=== PATIENT | female | born 1940 | race Caucasian/White ===

== ENCOUNTER 2019-11-22 14:23 | Inpatient (IN) | payer MEDICARE, OTHER, SELFPAY ==
[2019-11-22] VITALS (8 sets, daily range): BP systolic 108–191; BP diastolic 48–91; PULSE 71–95; RESP 11–20; TEMP 36–36.6; O2SAT 90–100; BMI 35.0
--- NOTE | ~2019-11-22 | XR_ITS ---
EXAMINATION: XR surgery orthopedic DATE: 11/24/2019 10:44 INDICATION: Left hip pinning TECHNIQUE: 3 fluoroscopic spot images of the left hip were obtained during procedure performed by Dr. Del Rio. Radiologist was not present for the imaging or procedure. The amount of fluoroscopy time us ed during this procedure was 1.4 minutes. COMPARISON: 11/22/2019 FINDINGS: Nursing Assistants Teacher image redemonstrates a nondisplaced subcapital fracture of the proximal left femur. Subsequent images demonstrate fixation across the fracture with 3 cannulated lag screws which remains in near-an atomic alignment no other fractures identified. Mild osteoarthritis at the left hip. IMPRESSION: 1. Near-anatomic alignment post lag screw fixation of a nondisplaced subcapital fracture of the proxi mal left femur. Reviewed, dictated and finalized at location A. IMPRESSION: 1. Near-anatomic alignment post lag screw fixation of a nondisplaced subcapital fracture of the proximal left femur.
--- NOTE | ~2019-11-22 | CT_ITS ---
EXAMINATION: CT brain wo con DATE: 11/22/2019 16:42 INDICATION: Fall. Struck left side of head. TECHNIQUE: Computed tomography (CT) of the head was performed without intravenous contrast. The mA wa s adjusted according to patient size. Iterative reconstruction technique was employed. Exam dose: 68 1.00 mGy-cm total exam DLP. COMPARISON: 12/04/2018 CT brain FINDINGS: Large chronic infarct is again noted in the right temporal, occipital and parietal areas. There is nonspecific diminished attenuation of the cerebral white matter, likely due to chronic small vessel ischemic changes. No intracranial mass lesion or hemorrhage, midline shift or mass effect. No subdural or epidural lawrence heron. No skull fracture or bone destruction. Included paranasal sinuses and mastoid air cells are normally developed and aerated. IMPRESSION: Chronic large right temporal, occipital and parietal infarct Reviewed, dictated and finalized at Location A. Reviewed, dictated and finalized at location B.
--- NOTE | ~2019-11-22 | XR_ITS ---
EXAMINATION: XR hip LT 2V w AP pelvis DATE: 11/22/2019 15:12 INDICATION: Left hip pain. Fall. TECHNIQUE: An anteroposterior view of the pelvis and 2 views of left hip were obtained. COMPARISON: Pelvis radiograph 02/27/2016 FINDINGS: There is levocurvature and severe spondylosis of lumbar spine. There is a subcapital fractu re of left femoral neck. The distal fracture fragment demonstrates impaction and 17 degrees valgus an gulation. There is mild osteoarthritis of the hips. IMPRESSION: 1. Subcapital fracture of left femoral neck. 2. Mild osteoarthritis of the hips. Reviewed, dictated and finalized at location A.
--- NOTE | ~2019-11-22 | XR_ITS ---
[[id number] ] INDICATION: Left rib pain after fall TECHNIQUE: Frontal projection of the upper left ribs, frontal projection of the lower left ribs, obli que projection of all the left ribs, frontal inspiratory chest x-ray for interpretation. FINDINGS: There are no displaced rib fractures identified. There are no soft tissue abnormality see n. There is pulmonary vascular indistinctness with peribronchial thickening. Portacatheter tip in the SVC. There is atherosclerosis of the aorta. IMPRESSION: 1:No displaced rib fractures. 2:Pulmonary vascular indistinctness with peribronchial thickening centrally which may represent an at ypical pneumonia or interstitial edema. Reviewed, dictated and finalized at location A. IMPRESSION: 1:No displaced rib fractures. 2:Pulmonary vascular indistinctness with peribronchial thickening centrally whi ch may represent an atypical pneumonia or interstitial edema.
--- NOTE | ~2019-11-22 | XR_ITS ---
EXAMINATION: XR chest 2V DATE: 11/24/2019 06:36 INDICATION: Assess fluid balance prior to the surgery TECHNIQUE: frontal and lateral views of the chest were obtained. COMPARISON: Chest radiograph dated 07/23/2018 FINDINGS: Right subclavian central venous port catheter with distal tip at the caudal superior vena cava. Small bilateral pleural effusions with blunting at the posterior sulci and costophrenic angles. Multiple s mall scattered calcified pulmonary nodules consistent with old granulomatous disease. No pulmonary ed mary or pneumothorax. The cardiomediastinal silhouette is normal limits for AP technique. Surgical cli ps at the left side of the neck. IMPRESSION: 1. Small bilateral pleural effusions. Reviewed, dictated and finalized at location A.
--- NOTE | 2019-11-22 14:50 | PC.NURSE ---
patient able to bear some weight on left leg when being moved into bed
--- NOTE | 2019-11-22 15:31 | ECG_ITS ---
Measurements Intervals [place] Rate: 72 P: 76 NC: 196 QRS: -26 QRSD: 166 T: 144 QT: 440 QTc: 483 Interpretive Statements SINUS RHYTHM LEFT BUNDLE BRANCH BLOCK ABNORMAL ECG Electronically Signed On 11-22-2019 17:10:39 CDT by Manuel Villa D.O.
[2019-11-22 15:48] LABS: Basophils Percent Auto 0.1 % (0.2-1.2); Eosinophils Absolute Auto 0.3 K/mm3 (0-0.3); Eosinophils Percent Auto 2.9 % (0-4.4); Hemoglobin 13.3 g/dL (12.0-15.0); Immature Granulocyte Absolute 0.04 K/mm3 (0.00-0.031); Immature Granulocyte Percent A 0.5 % (0-0.5); Lymphocytes Absolute Auto 0.98 K/mm3 (0.9-3.2); Lymphocytes Percent Auto 11.1 % (18.3-44.2); Mean Corpuscular HGB Conc 33.3 g/dl (32-36); Mean Corpuscular Hemoglobin 29.5 pg (26-34); Mean Corpuscular Volume 88.7 fl (80-100); Mean Platelet Volume 9.5 fl (7.4-10.4); Monocytes Absolute Auto 0.6 K/mm3 (0.1-0.6); Neutrophils Percent Auto 78.4 % (45.5-73.1); Platelet Count Result 240 k/mm3 (150-375); Red Blood Count 4.51 M/mm3 (4.2-5.4); Red Cell Distribution Width 12.7 % (11.5-14.5); White Blood Count 8.9 K/mm3 (4.5-10.0)
[2019-11-22] MEDS: MORPHINE SULFATE 2 MG/ML INJ IV PUSH ×2 (15:48→20:09)
[2019-11-22] MEDS: SODIUM CHLORIDE 0.9% IV 1,000 ML 999 ML IV CONT (15:48)
[2019-11-22] MEDS: ONDANSETRON INJ 4 MG/2 ML VIAL IV PUSH (15:48)
--- NOTE | 2019-11-22 15:55 | PC.NURSE ---
PT DROWSY AND SLEEPING POST MORPHINE ADMIN, 2L NC APPLIED AT THIS TIME PA CELY AWARE.
--- NOTE | 2019-11-22 15:55 | PC.NURSE ---
PT O2 SATURATION 98% AFTER O2 APPLIED.
[2019-11-22 15:58] LABS: INR 1.1; Prothrombin Time 13.4 Seconds (11.1-14.7)
[2019-11-22 16:02] LABS: Blood Urea Nitrogen 21 mg/dL (7-17); Carbon Dioxide 31 mmol/L (22-30); Chloride 100 mmol/L (98-107); Estimated CRCL calculation 38 ml/min; Estimated Glomerular Filt Rate 53; Glucose 81 mg/dL (65-105); Potassium 3.9 mmol/L (3.4-5.0); Sodium 138 mmol/L (137-145)
--- NOTE | 2019-11-22 16:03 | ED.FALL ---
HPI - Fall General Chief Complaint: Fall <SHRUTHI Means Last Filed: 11/22/19 17:55> Stated Complaint: fall, left hip pain <SHRUTHI Means Last Filed: 11/22/19 17:55> Time Seen by Provider: 11/22/19 15:08 <SHRUTHI Means Last Filed: 11/22/19 17:55> Source: patient and family <SHRUTHI Means Last Filed: 11/22/19 17:55> Mode of arrival: ambulatory <SHRUTHI Means Last Filed: 11/22/19 17:55> Limitations: no limitations <SHURTHI Means Last Filed: 11/22/19 17:55> History of Present Illness HPI Narrative: Patient is an 79-year-old female who presents to emergency department for evaluation of injuries related to a ground-level fall that occurred while trying to get into her wheelchair fell onto a flower bed injuring the right hip striking the left side of the head and injuring the left ribs. Patient has history of unstable gait was going to lunch with her family when she fell. Denies syncope or loss of consciousness. Patient notes moderate aching pain of the right hip. Patient presents with family per private vehicle in no acute distress and has not had anything for pain. Patient notes she is currently being treated for urinary tract infection <SHRUTHI Means Last Filed: 11/22/19 17:55> Related Data Home Medications: Home Medications Medication Instructions Recorded Confirmed amlodipine 5 mg PO DAILY 11/22/19 11/22/19 aspirin [Aspirin Low Dose] 81 mg PO DAILY 11/22/19 11/22/19 atorvastatin 40 mg PO HS 11/22/19 11/22/19 carvedilol 3.125 mg PO BID 11/22/19 11/22/19 clopidogrel 75 mg PO DAILY 11/22/19 11/22/19 dorzolamide 1 drp OPHTHALMIC (EYE) BID 11/22/19 11/22/19 duloxetine 60 mg PO DAILY 11/22/19 11/22/19 furosemide 40 mg PO DAILY 11/22/19 11/22/19 insulin glargine [Lantus U-100 20 unit SUBCUT QPM 11/22/19 11/22/19 Insulin] insulin lispro [Humalog U-100 1 sliding scale dose SUBCUT 11/22/19 11/22/19 Insulin] USEASDIRECTD levothyroxine 100 mcg PO DAILY 11/22/19 11/22/19 losartan 25 mg PO DAILY 11/22/19 11/22/19 nitrofurantoin monohyd/m-cryst 11/22/19 potassium chloride 10 meq PO DAILY 11/22/19 11/22/19 <Red Lackey PA-C - Last Filed: 11/22/19 17:55> Allergies/Adverse Reactions: Allergies Allergy/AdvReac Type Severity Reaction Status Date / Time prednisone AdvReac Mild Other Verified 11/22/19 14:32 simvastatin AdvReac Unknown Muscle Verified 11/22/19 14:32 Spasms <Red Lackey PA-C - Last Filed: 11/22/19 17:55> Review of Systems Review of Systems: All systems reviewed & are unremarkable except as noted in HPI and below <Red Lackey PA-C - Last Filed: 11/22/19 17:55> [facility] Past Medical History Medical History: Medical History (Updated 11/22/19 @ 17:55 by Red Lackey PA-C) CVA (cerebral vascular accident) Hypertension Myocardial infarction <Red Lackey PA-C - Last Filed: 11/22/19 17:55> Surgical History Surgical History: Surgical History (Updated 11/22/19 @ 16:04 by Red Lackey PA-C) H/O carotid endarterectomy <Red Lackey PA-C - Last Filed: 11/22/19 17:55> Family History Family History: Family History (Updated 11/22/19 @ 19:57 by Naa Badillo RN) Daughter Diabetes mellitus Son Diabetes mellitus <Red Lackey PA-C - Last Filed: 11/22/19 17:55> Social History Social History: Social History Smoking status: Never smoker Alcohol intake: never Substance use: never Substance use type: does not use Gender identity (if verbalized by the patient): Female Spiritual care concerns: No <Red Lackey PA-C - Last Filed: 11/22/19 17:55> Exam Narrative: Exam Narrative: GENERAL: Well-appearing, well-nourished, and in no acute distress. HEAD: Normocephalic, contusion abrasion to the left parietal scalp EYES: PERRLA and EOMI. ENT: Na
--- NOTE | 2019-11-22 16:49 | PC.NURSE ---
Pt in scanner at this time.
--- NOTE | 2019-11-22 17:55 | PC.NURSE ---
HEART HEALTHY DIET ORDERED AND CALLED INTO NUTRITION AT THIS TIME PER REQUEST OF PT AND OKAYED BY BERNADETTE TA WHO STATES PT SURGERY WILL NOT BE UNTIL TOMORROW, SHE NEEDS TO BE NPO AFTER MIDNIGHT.
--- NOTE | 2019-11-22 19:06 | ADMGEN ---
This patient, Daniella Dietrich, was admitted to Medical Room 243-. Patient/family oriented to hospital policies and general routines including ID bracelet, bed and alarms, visiting hours, pain management, procedures, bathroom and other care routines, personal items, smoking policy, room service/diet, and visiting hours. Valuables list has been completed. Information on how to activate the Rapid Response Team has been discussed. Patient/Family are encouraged to report perceived risks to care and to ask questions if they do not understand what they are told or what they should do.
[2019-11-22] MEDS: LACTATED RINGERS 1,000 ML 125 ML IV CONT (20:08)
[2019-11-22] MEDS: FAMOTIDINE 20 MG/2 ML VIAL IV PUSH (20:10)
[2019-11-22 20:50] LABS: Glucose Point of Care 194 (65-105)
[2019-11-22] MEDS: INSULIN GLARGINE (*BKC) 100 UNITS/ML 12 UNITS SUB-Q (21:23)
--- NOTE | 2019-11-22 23:05 | PM.IMHP ---
H&P: HPI History of Present Illness Chief complaint: Left hip fracture/head injury Narrative: Daniella Dietrich is a 79 year old female who has some gait instability. The patient was tried to get into her wheelchair today when she fell and hit the left side of her head and her left hip she fell into the floor bed injuring that left hip left side of her head and left ribs. She had no syncope or loss of consciousness. She had some aches to her hip. It was reported that the patient is being treated for urinary tract infection. She is diabetic. She has also had a stroke in the past. The patient got slightly hypoxic after she was given morphine in the emergency room and was placed on oxygen at 2 L per nasal cannula. X-ray of the hip and pelvis subcapital fracture of the left femoral neck. Mild osteoarthritis of the hips. The patient is eating well. Hip pelvis x-ray was read as subcapital fracture of the left femoral neck. Mild osteoarthritis of the hips. Hip pelvis x-ray subcapital fracture of the left femur. Head CT was read as chronic large right temporal occipital parietal infarction. Chest x-ray and ribs no displaced rib fractures. Pulmonary vascular indistinctness with peribronchial thickening centrally to which may represent a typical pneumonia or interstitial edema. On IV fluids, given Zofran and morphine in the emergency room. Date of service 11/22/2019 Review of Systems Review of Systems: All systems reviewed & are unremarkable except as noted in HPI and below Constitutional: Constitutional: Reports as per HPI and Reports no additional constitutional complaints Eyes: Eyes: Reports as per HPI and Reports no additional eye complaints ENT: Reports system reviewed and no additional complaints, except as documented and Reports Normal hearing present Cardiovascular: Cardiovascular: Reports no additional cardiovascular complaints Respiratory: Respiratory: Reports no additional respiratory complaints and Reports no additional respiratory complaints Gastrointestinal: Gastrointestinal: Reports as per HPI and Reports no additional gastrointestinal complaints Musculoskeletal: Musculoskeletal: Reports no additional musculoskeletal complaints Integumentary/Breasts: Skin/Breast: Reports system reviewed and no additional complaints, except as docu and Reports as per HPI Neurologic: Reports system reviewed and no additional complaints, except as documented, Reports as per HPI and Reports Normal hearing present Psychiatric: Psychiatric: Reports no additional psychiatric complaints and Reports as per HPI Endocrine: Endocrine: Reports no additional endocrine complaints Hematologic/Lymphatic: Hematologic/Lymphatic: Reports no additional hematologic/lymphatic complaints Allergic/Immunologic: Allergic/Immunologic: Reports no additional allergic/immunologic complaints [facility] Past Medical History Medical History (Updated 11/22/19 @ 23:27 by Anna Marie Workman NP) CAD (coronary artery disease) History non STEMI and stent placement 2004 Congestive heart failure Diastolic CVA (cerebral vascular accident) DM2 (diabetes mellitus, type 2) Insulin-dependent Glaucoma HTN (hypertension), malignant Hyperlipidemia Hypertension Hypothyroidism Kidney stone Myocardial infarction Peripheral artery disease Port-A-Cath in place Surgical History Surgical History (Updated 11/22/19 @ 23:20 by Anna Marie Workman NP) Cataract extraction status Bilateral H/O carotid endarterectomy H/O heart artery stent 2004 History of appendectomy S/P ERCP To remove gallbladder stones Family History Family History Daughter Diabetes mellitus Son Diabetes mellitus Mother Cerebrovascular accident Heart disease Kidney disease Sibling Heart disease Sibling Carcinoma of colon Social History Social History (Updated 11/22/19 @ 23:22 by Anna Marie Workman NP) Social History: The patient lives at
[2019-11-23] VITALS (11 sets, daily range): BP systolic 117–180; BP diastolic 46–59; PULSE 79–987; RESP 12–20; TEMP 36.1–36.8; O2SAT 88–98
--- NOTE | 2019-11-23 | ECHO_ITS ---
Patient Info Name: Daniella Dietrich Age: 79 years : 1940 Gender: Female Ht: 62 in Wt: 191 lbs BSA: 1.99 m2 HR: 83 bpm BP: 180 / 53 mmHg Heart Rhythm: Sinus Rhythm Technical Quality: Good Exam Date: 11/23/2019 2:08 PM Exam Location: [facility] Pulmonary Exam Room: 243 Patient Status: Inpatient Admit Date: 11/22/2019 Staff Ordering Physician: Bel Carrillo PA-C Blood Bank Laboratory Technician: Karlie Mcintosh RDCS Attending Provider: Bilyl Arboleda MD Referring Physician: Gerardo LINDO; Exam Type: CA echo doppler color flow Study Info Indications - cad edema murmur Complete two-dimensional, color flow and Doppler transthoracic echocardiogram is performed. Summary 1. There is moderate to severely increased left ventricular wall thickness. 2. Left ventricular chamber dimension is normal. 3. Left ventricular systolic function is normal, estimated at 50-55%. 4. Left ventricular septal wall motion is abnormal with septal motion related to bundle branch block. 5. The left ventricular diastolic function is grade I diastolic dysfunction. 6. There is no aortic valve stenosis. 7. Severe pulmonary hypertension, estimated pulmonary arterial systolic pressure is 66 mmHg. 8. There is mild tricuspid valve regurgitation. Left Ventricle There is moderate to severely increased left ventricular wall thickness. Left ventricular chamber dimension is normal. Left ventricular systolic function is normal, estimated at 50-55%. Left ventricular septal wall motion is abnormal with septal motion related to bundle branch block. The left ventricular diastolic function is grade I diastolic dysfunction. Right Ventricle Right ventricular chamber dimension is normal. Right ventricular systolic function is normal. Left Atria Left atrial chamber dimension is mildly enlarged. Right Atria Right atrial chamber dimension is mildly enlarged. Aortic Valve The aortic valve is trileaflet. There is mild aortic valve sclerosis. There is no aortic valve stenosis. There is no aortic valve regurgitation. Pulmonic Valve The pulmonic valve is not well visualized. There is trace pulmonic regurgitation. Mitral Valve The mitral valve has thickened leaflets. There is trace mitral valve regurgitation. The mitral valve annulus is severely calcified. Tricuspid Valve The tricuspid valve leaflets are normal. There is mild tricuspid valve regurgitation. Severe pulmonary hypertension, estimated pulmonary arterial systolic pressure is 66 mmHg. Pericardium/Pleural The pericardium appears normal. There is no pericardial effusion. Inferior Vena Cava Normal inferior vena cava with >50% collapse upon inspiration consistent with normal right atrial pressure, 5 mmHg. Aorta The aortic root size at the sinus of Valsalva is normal. Left Ventricular Outflow Tract Name Value Normal LVOT 2D LVOT Diameter 2.0 cm LVOT Doppler LVOT Peak Gradient 4 mmHg LVOT Mean Gradient 2 mmHg LVOT VTI 20 cm LVOT VTI/AV VTI Ratio 1.0
[2019-11-23 04:11] LABS: Basophils Absolute Auto 0.1 K/mm3 (0.0-0.1); Basophils Percent Auto 0.3 % (0.2-1.2); Eosinophils Absolute Auto 0.5 K/mm3 (0-0.3); Eosinophils Percent Auto 2.8 % (0-4.4); Immature Granulocyte Percent A 0.6 % (0-0.5); Lymphocytes Percent Auto 3.1 % (18.3-44.2); Mean Corpuscular HGB Conc 33.3 g/dl (32-36); Mean Corpuscular Hemoglobin 29.7 pg (26-34); Mean Corpuscular Volume 89.2 fl (80-100); Mean Platelet Volume 10.1 fl (7.4-10.4); Monocytes Absolute Auto 0.8 K/mm3 (0.1-0.6); Neutrophils Absolute Auto 14.4 K/mm3 (1.3-6.7); Neutrophils Percent Auto 88.2 % (45.5-73.1); Platelet Count Result 191 k/mm3 (150-375); Red Blood Count 4.37 M/mm3 (4.2-5.4); Red Cell Distribution Width 12.8 % (11.5-14.5); White Blood Count 16.3 K/mm3 (4.5-10.0)
[2019-11-23] MEDS: MORPHINE SULFATE 2 MG/ML INJ IV PUSH ×2 (04:18→22:45)
[2019-11-23] MEDS: LACTATED RINGERS 1,000 ML 125 ML IV CONT (04:18)
[2019-11-23 04:34] LABS: Blood Urea Nitrogen 21 mg/dL (7-17); CRP 3.3 mg/dL (<1.0); Calcium 8.3 mg/dL (8.4-10.2); Carbon Dioxide 26 mmol/L (22-30); Chloride 101 mmol/L (98-107); Estimated CRCL calculation 44 ml/min; Estimated Glomerular Filt Rate 60; Glucose 271 mg/dL (65-105); Magnesium 1.9 mg/dL (1.6-2.3); Potassium 4.6 mmol/L (3.4-5.0); Sodium 133 mmol/L (137-145)
[2019-11-23 05:15] LABS: Thyroid Stimulating Hormone Reflex 0.712 uIU/mL (0.465-4.68)
[2019-11-23] MEDS: LOSARTAN POTASSIUM 25 MG TABLET PO (08:43)
[2019-11-23] MEDS: LEVOTHYROXINE SODIUM 100 MCG TABLET PO (08:43)
[2019-11-23] MEDS: AMLODIPINE BESYLATE 5 MG TABLET PO (08:43)
[2019-11-23] MEDS: FUROSEMIDE 40 MG TABLET PO (08:44)
[2019-11-23] MEDS: INSULIN ASPART (*BKC) 100 UNITS/ML SUB-Q ×3 (08:44→17:25)
[2019-11-23] MEDS: DULoxetine HCL 60 MG CAPSULE.DR PO (08:44)
[2019-11-23] MEDS: POTASSIUM CHLORIDE 10 MEQ TABLET.ER PO (08:44)
[2019-11-23] MEDS: carvediloL 3.125 MG TABLET PO ×2 (08:44→20:51)
[2019-11-23] MEDS: NITROFURANTOIN MONOHYD MACROCR 100 MG CAP PO (08:44)
[2019-11-23] MEDS: FAMOTIDINE 20 MG/2 ML VIAL IV PUSH ×2 (08:46→20:51)
[2019-11-23] MEDS: DORZOLAMIDE HCL 2% OPHTH DROPS 1 DROP EACH EYE ×2 (08:46→17:23)
--- NOTE | 2019-11-23 08:50 | PM.CNOR ---
Assessment and Plan Assessment and plan (1) Closed fracture of left hip: Qualifiers: Encounter type: initial encounter Qualified Code(s): S72.002A - Fracture of unspecified part of neck of left femur, initial encounter for closed fracture Code(s): S72.002A - Fracture of unspecified part of neck of left femur, initial encounter for closed fracture Status: Acute Assessment and Plan: pleasant 79-year-old female witnessed fall upon transfer yesterday. Left hip femoral neck fracture with valgus impaction. Patient is a poor candidate for hip replacement given her medical comorbidities, chronic urinary tract infections and previous stroke. She is at minimum a household ambulator and does some ambulation outside the house. History, physical exam and radiographs reviewed with the patient. Discussed the condition, nature, etiology and course of natural history with the patient. Treatment options including surgical and nonoperative treatment were reviewed. Risks and benefits of each as well as alternatives reviewed. The patient's questions were answered. Conservative treatment ice, SCDs. Patient is going to discuss with family but would like to proceed with surgery. She would need treatment for her urinary tract infection. Her anticoagulant served being held. If she is medically stable we have planned surgery for tomorrow and discussed hip pinning. Discussed nonoperative and operative treatment options with the patient. Risks and benefits of each as well as alternatives were reviewed. All of the patient's questions were answered. The risks of surgery reviewed including but not limited to: Neurovascular damage, wound complication, infection, blood clot, pulmonary embolus, stroke, myocardial infarction, and anesthetic risks up to and including . Continued pain and possible dysfunction were explained. Specific risks of the procedure including later recurrence of deformity. No guarantees were offered. If hardware used, discussed risk of failure/ breakage and possible need for removal. If complications occur, the patient understands the need for further treatment, possible further surgery. Patient verbalizes understanding and wishes to proceed. PLAN: Left hip pinning (2) UTI (urinary tract infection): Qualifiers: Urinary tract infection type: urethritis Qualified Code(s): N34.2 - Other urethritis Code(s): N39.0 - Urinary tract infection, site not specified Status: Acute (3) DM2 (diabetes mellitus, type 2): Qualifiers: Diabetes mellitus meterman insulin use: with retirement use Diabetes mellitus complication status: with neurologic complications Diabetes mellitus complication detail: with other neurological complication Qualified Code(s): E11.49 - Type 2 diabetes mellitus with other diabetic neurological complication; Z79.4 - long term care phlebotomist (current) use of insulin Code(s): E11.9 - Type 2 diabetes mellitus without complications Status: Chronic History of Present Illness HPI Consult date: 11/23/19 Requesting physician: Amber Hall MD Consult reason: fracture Chief complaint: Left hip fracture/head injury Narrative: 79-year-old female fall from transfer to wheelchair yesterday while outside the home. Emergency room radiographs show left hip fracture. Patient admitted. No prior problems with hip. Patient is a household ambulator with use of a cane, wheelchair ambulator outside the house. Denies loss of consciousness. Complains of left hip pain with movement. Denies numbness or tingling. Patient with history of chronic urinary tract infection. States was recently being treated with oral antibiotics as of last week for positive urine culture. Review of Systems Constitutional: Constitutional: Denies fever(s) Eyes: Eyes: Denies blurry vision ENT: Reports Normal hearing present Cardiovascular: Cardiovascular: Denies chest pain and Denies dyspnea Respirato
[2019-11-23 09:09] LABS: Glucose Point of Care 251 (65-105)
[2019-11-23 12:36] LABS: Glucose Point of Care 260 (65-105)
--- NOTE | 2019-11-23 13:45 | PM.IMPN ---
Progress Note: A&P Assessment and Plan (1) Closed fracture of left hip: Qualifiers: Encounter type: initial encounter Qualified Code(s): S72.002A - Fracture of unspecified part of neck of left femur, initial encounter for closed fracture Code(s): S72.002A - Fracture of unspecified part of neck of left femur, initial encounter for closed fracture Status: Acute Assessment and Plan: ----left hip fracture with sensation and pulses intact. Plan to go to surgery tomorrow. Aspirin and Plavix have been held. She has have an extensive cardiac history with vascular disease. I have called her executive coach and they would not give me any information over the phone but is going to fax over her last office report along with the echo. Her chest x-ray looks like there may be some pulmonary be edema I will add a BNP and obtain another chest x-ray tomorrow. I have given her a small dose of Lasix. I have also added another echo. The last echo here was June 2017 which showed diastolic dysfunction. She has been having some hypoxia since being here and we are going to wean that down. This is likely due to pain medications in the ER. Although it is not documented, nursing staff states that she was down 84 earlier today. She has not had any CP or SOB over the last 3 months. Patient has a moderate risk of surgery but should tolerated just fine since she routinely sees her executive coach. Her last cardiology appointment was in June. (2) DM2 (diabetes mellitus, type 2): Qualifiers: Diabetes mellitus prison insulin use: with prison use Diabetes mellitus complication status: with neurologic complications Diabetes mellitus complication detail: with other neurological complication Qualified Code(s): E11.49 - Type 2 diabetes mellitus with other diabetic neurological complication; Z79.4 - terminal block assembler (current) use of insulin Code(s): E11.9 - Type 2 diabetes mellitus without complications Status: Chronic Assessment and Plan: -----patient will be NPO at midnight so I will decrease her Lantus to 12 units tonight. Continue sliding scale insulin. Plan to increase Lantus after surgery as long as she does well. (3) Hyperlipidemia: Code(s): E78.5 - Hyperlipidemia, unspecified Status: Chronic Assessment and Plan: -----Continue with atorvastatin (4) UTI (urinary tract infection): Qualifiers: Urinary tract infection type: urethritis Qualified Code(s): N34.2 - Other urethritis Code(s): N39.0 - Urinary tract infection, site not specified Status: Acute Assessment and Plan: -----Macrobid has been discontinued and ceftriaxone started by Dr. Del Rio. Will continue with that. No pneumonia suspected clinically at this time but will monitor. Since she has been having night sweats and she has a significant leukocytosis this morning, I will draw all blood cultures. I do not suspect bacteremia and the likelihood is low. I think her leukocytosis is likely from inflammatory response since it was normal yesterday. Culture pending (5) Glaucoma: Code(s): H40.9 - Unspecified glaucoma Status: Chronic Assessment and Plan: ----Continue with patient's eye drops . (6) Hypothyroidism: Code(s): E03.9 - Hypothyroidism, unspecified Status: Chronic Assessment and Plan: -----TSH normal. Continue levothyroxine. (7) HTN (hypertension), malignant: Code(s): I10 - Essential (primary) hypertension Status: Chronic Assessment and Plan: ------last blood pressure 180/53. Likely more elevated due to pain. Continue amlodipine, carvedilol, Lasix, and losartan. P.r.n. hydralazine has been added. I spoke with the nurse who is going to recheck it. (8) Congestive heart failure: Code(s): I50.9 - Heart failure, unspecified Status: Chronic Assessment and Plan: -----known d
[2019-11-23] MEDS: FUROSEMIDE INJ 40 MG/4 ML VIAL 20 MG IV PUSH (15:28)
[2019-11-23 15:58] LABS: NT Pro B Type Natriuretic Pept 14800 PG/ML (5-100)
[2019-11-23] MEDS: INSULIN GLARGINE (*BKC) 100 UNITS/ML 12 UNITS SUB-Q (17:24)
[2019-11-23] MEDS: LATANOPROST 0.005% OP SOLN 2.5 ML BTL 1 DROP EACH EYE (17:24)
[2019-11-23 17:37] LABS: Glucose Point of Care 277 (65-105)
[2019-11-23] MEDS: ATORVASTATIN 40 MG TABLET PO (20:51)
[2019-11-23] MEDS: ONDANSETRON INJ 4 MG/2 ML VIAL IV PUSH (22:42)
[2019-11-24] VITALS (19 sets, daily range): BP systolic 91–192; BP diastolic 44–89; PULSE 62–92; RESP 12–25; TEMP 36–36.7; O2SAT 92–100
[2019-11-24] MEDS: hydrALAZINE HCL 20 MG/ML VIAL 10 MG IV PUSH (00:09)
[2019-11-24] MEDS: INSULIN ASPART (*BKC) 100 UNITS/ML SUB-Q ×4 (00:12→16:47)
[2019-11-24 04:09] LABS: Glucose Point of Care 375 (65-105)
[2019-11-24 04:12] LABS: Glucose Point of Care 385 (65-105)
[2019-11-24 06:06] LABS: Hemoglobin 11.4 g/dL (12.0-15.0); Mean Corpuscular HGB Conc 32.6 g/dl (32-36); Mean Corpuscular Hemoglobin 29.3 pg (26-34); Mean Platelet Volume 10.1 fl (7.4-10.4); Platelet Count Result 169 k/mm3 (150-375); Red Blood Count 3.89 M/mm3 (4.2-5.4); White Blood Count 11.1 K/mm3 (4.5-10.0)
[2019-11-24 06:21] LABS: Alanine Aminotransferase 12 U/L (4-35); Albumin Level 3.2 g/dL (3.5-5.1); Alkaline Phosphatase 116 U/L (38-126); Aspartate Amino Transferase 24 U/L (14-36); Bilirubin,Total 0.6 mg/dL (0.2-1.3); Blood Urea Nitrogen 23 mg/dL (7-17); Calcium 8.4 mg/dL (8.4-10.2); Carbon Dioxide 30 mmol/L (22-30); Chloride 97 mmol/L (98-107); Estimated CRCL calculation 44 ml/min; Estimated Glomerular Filt Rate 60; Glucose 332 mg/dL (65-105); Potassium 4.3 mmol/L (3.4-5.0); Sodium 131 mmol/L (137-145)
--- NOTE | 2019-11-24 07:10 | WPDHPUPDATE1 ---
History and Physical Update Update Date/Time: 11/24/19 07:10 History and Physical has been reviewed, including an updated exam of the patient. There are NO changes in the patient's condition. Risks, benefits, and alternatives have been discussed and questions answered. Patient agrees to proceed with procedure.
[2019-11-24 07:51] LABS: Hemoglobin A1C 9.6 % (<5.7)
[2019-11-24 07:57] LABS: Glucose Point of Care 316 (65-105)
[2019-11-24] MEDS: carvediloL 3.125 MG TABLET PO ×2 (08:19→20:23)
[2019-11-24] MEDS: FAMOTIDINE 20 MG/2 ML VIAL IV PUSH ×2 (08:19→20:25)
--- NOTE | 2019-11-24 08:20 | PC.NURSE ---
To OR per bed, IV saline locked. Report given to SAGRARIO Pena. Administered coreg per Becky. Blood sugar prior to surgery 316. Spoke with Becky and hospitalist BERNADETTE Staples who stated to administer the sliding scale Novolog of 4U.
[2019-11-24] MEDS: LACTATED RINGERS 1,000 ML 30 ML IV CONT (08:50)
[2019-11-24] MEDS: IBUPROFEN IV 800 MG/200 ML 800 MG/200 ML BAG 400 MG IVPB (09:30)
[2019-11-24 09:32] LABS: Glucose Point of Care 310 (65-105)
--- NOTE | 2019-11-24 09:33 | WPDANESEPPF ---
Anes - Initial Pre Proc Eval Procedure: Operation Date: 11/24/19 09:30 Proposed Procedures p LEFT HIP PINNING - Massimo Del Rio MD Date/Time: 11/24/19 09:33 Surgeon: Billy Arboleda MD Pre Op Diagnosis: Left hip fracture/head injury Patient Data Age: 79 Gender: F Height: 5 ft 2 in Weight: 86.9 kg Last Vital Signs Temp 36.7 C 11/24/19 08:18 Pulse 89 11/24/19 08:19 Resp 16 11/24/19 08:18 BP 138/52 L 11/24/19 08:18 Pulse Ox 94 11/24/19 08:18 Allergies Allergy/AdvReac Type Severity Reaction Status Date / Time prednisone AdvReac Mild Other Verified 11/22/19 14:32 simvastatin AdvReac Unknown Muscle Verified 11/22/19 14:32 Spasms Home Medications Medication Instructions Recorded Confirmed Type amlodipine 5 mg PO DAILY 11/22/19 11/22/19 History aspirin [Aspirin Low Dose] 81 mg PO DAILY 11/22/19 11/22/19 History atorvastatin 40 mg PO HS 11/22/19 11/22/19 History carvedilol 3.125 mg PO BID 11/22/19 11/22/19 History clopidogrel 75 mg PO DAILY 11/22/19 11/22/19 History dorzolamide 1 drp OPHTHALMIC (EYE) BID 11/22/19 11/22/19 History duloxetine 60 mg PO DAILY 11/22/19 11/22/19 History furosemide 40 mg PO DAILY 11/22/19 11/22/19 History insulin glargine [Lantus U-100 24 unit SUBCUT QPM 11/22/19 11/22/19 History Insulin] insulin lispro [Humalog U-100 1 sliding scale dose SUBCUT 11/22/19 11/22/19 History Insulin] USEASDIRECTD latanoprost 1 drp OPHTHALMIC (EYE) QPM 11/22/19 11/22/19 History levothyroxine 100 mcg PO DAILY 11/22/19 11/22/19 History losartan 25 mg PO DAILY 11/22/19 11/22/19 History nitrofurantoin monohyd/m-cryst 100 mg PO BID 11/22/19 11/22/19 History potassium chloride 10 meq PO DAILY 11/22/19 11/22/19 History Laboratory Tests 11/23/19 11/23/19 11/23/19 12:06 15:29 17:23 WBC RBC Hgb Hct MCV MCH MCHC RDW Plt Count MPV Sodium Potassium Chloride Carbon Dioxide BUN Creatinine Estim Creat Clear Calc Estimated GFR Glucose POC Capillary Glucose 260 mg/dl H mg/dl 277 mg/dl H mg/dl (65-105) (65-105) Hemoglobin A1c Calcium Total Bilirubin Direct Bilirubin AST ALT Alkaline Phosphatase NT-Pro-B Natriuret Pep 44914 PG/ML H PG/ML (5-100) Total Protein Albumin 11/23/19 11/23/19 11/24/19 20:58 23:00 05:34 WBC RBC Hgb Hct MCV MCH MCHC RDW Plt Count MPV Sodium Potassium Chloride Carbon Dioxide BUN Creatinine Estim Creat Clear Calc Estimated GFR Glucose POC Capillary Glucose 385 mg/dl H mg/dl 375 mg/dl H mg/dl (65-105) (65-105) Hemoglobin A1c 9.6 % H % (<5.7) Calcium Total Bilirubin Direct Bilirubin AST ALT Alkaline Phosphatase NT-Pro-B Natriuret Pep Total Protein Albumin 11/24/19 11/24/19 11/24/19 05:37 05:37 07:35 WBC 11.1 K/mm3 H K/mm3 (4.5-10.0) RBC 3.89 M/mm3 L M/mm3 (4.2-5.4) Hgb 11.4 g/dL L g/dL (12.0-15.0) Hct 35.0 % L % (37.0-47.0) MCV 90.0 fl fl (80-100) MCH 29.3 pg pg (26-34) MCHC 32.6 g/dl g/dl (32-36) RDW 13.0 % % (11.5-14.5) Plt Count 169 k/mm3 k/mm3 (150-375) MPV 10.1 fl fl (7.4-10.4) Sodium 131 mmol/L L mmol/L (137-145) Potassium 4.3 mmol/L mmol/L (3.4-5.0) Chloride 97 mmol/L L
[2019-11-24] MEDS: INSULIN HUMAN REGULAR (*BKC) 100 UNITS/ML 10 UNITS SUB-Q (09:35)
[2019-11-24] MEDS: ceFAZolin 2 GM/D5W 50 ML 2 GM/50 ML BAG IVPB (09:39)
[2019-11-24] MEDS: BUPIVACAINE/EPINEPHRINE 0.5% 10 ML VIAL INFILTRATE (10:23)
--- NOTE | 2019-11-24 10:49 | PM.PROC ---
Procedure Note - Detailed Date of procedure: 11/24/19 Pre-op diagnosis: Left hip fracture/head injury Post-op diagnosis: same Procedure performed: LT hip pinning Description of procedure: Indications: 79-year-old woman fall onto left hip. Left hip femoral neck fracture. Patient and family discussed treatment options with surgery and non operative treatment including risks and benefits. They desire operative treatment. Implants used: [employer] 6.5 millimeter cannulated screw x3 What was done: Informed consent signed. Extremity marked in preoperative holding area. Patient received intravenous antibiotics. Brought to operating room and underwent general anesthetic by the Anesthesia Team. Positioned supine on the fracture table. Left leg placed into longitudinal traction. Right leg extended out of field. Image intensification brought in and confirmed reduction of fracture. Left hip prepped and draped in usual sterile surgical fashion using ChloraPrep skin solution. Image intensification used to guide the starting position and a longitudinal incision made with 10 blade knife over the lateral proximal femur. Blunt dissection carried down to the lateral femur. Bleeding controlled with electrocautery. First guide pin placed in the inferior center position of the femoral neck and head. Confirmed with image intensification. Two subsequent pins placed superior and anterior and superior and posterior to the 1st pin to create an inverted triangle type pattern. Pins confirmed with image intensification. Length of screw measured, reaming performed. Appropriate size screw placed with good compression and fixation noted for all 3 pins. Guide pins removed. Final image intensification confirmed reduction of fracture and placement of hardware with threads past the fracture line and no protrusion of the hip joint. Wound thoroughly irrigated with antibiotic solution. Fascia repaired with 2 0 Vicryl interrupted sutures. Subcutaneous tissue repaired with 3 0 Monocryl interrupted suture. Skin approximated with 3 0 Monocryl running suture. Sterile dressing applied. Patient awoken from anesthesia, extubated and returned to recovery room in stable condition. All sponge needle and instrument counts correct at the end of the case. Implants: Biomet 6.5mm screws x 3 Anesthesia: GLMA Surgeon: Massimo Del Rio MD Machine Shop Instructor: 1st asst Estimated blood loss (mL): 30 Tourniquet time (min): 0 Drains: No Packing: No Pathology: none sent Complications: None Condition: stable Disposition: PACU
[2019-11-24 11:02] LABS: Glucose Point of Care 248 (65-105)
--- NOTE | 2019-11-24 11:10 | SUR.PHASEI ---
1110 dr sweet notiifed of [id number], no new orders
--- NOTE | 2019-11-24 12:04 | PC.NURSE ---
Patient return from OR per bed.
[2019-11-24] MEDS: DORZOLAMIDE HCL 2% OPHTH DROPS 1 DROP EACH EYE ×2 (12:14→16:49)
[2019-11-24 12:29] LABS: Glucose Point of Care 202 (65-105)
[2019-11-24] MEDS: KCL 20 MEQ/D5/0.45% SOD CHL 1,000 ML 80 ML IV CONT (12:46)
[2019-11-24] MEDS: LACTATED RINGERS 1,000 ML 80 ML IV CONT (12:55)
--- NOTE | 2019-11-24 13:13 | PM.IMPN ---
Progress Note: A&P Assessment and Plan (1) Closed fracture of left hip: Qualifiers: Encounter type: initial encounter Qualified Code(s): S72.002A - Fracture of unspecified part of neck of left femur, initial encounter for closed fracture Code(s): S72.002A - Fracture of unspecified part of neck of left femur, initial encounter for closed fracture Status: Acute Assessment and Plan: ----postop day 0 of left hip pinning Patient is doing well with pain control. Anticoagulation and PT OT per Ortho. (2) DM2 (diabetes mellitus, type 2): Qualifiers: Diabetes mellitus exterminator termite insulin use: with halfway use Diabetes mellitus complication status: with neurologic complications Diabetes mellitus complication detail: with other neurological complication Qualified Code(s): E11.49 - Type 2 diabetes mellitus with other diabetic neurological complication; Z79.4 - FPC (current) use of insulin Code(s): E11.9 - Type 2 diabetes mellitus without complications Status: Chronic Assessment and Plan: -----patient's A1c is 9 so her diabetes is uncontrolled at baseline. I had a long discussion with the patient and her family about the importance improving her blood glucose for healing. They said that she takes a sliding scale at home and averages anywhere between 8 and 12 units of insulin. That is likely why she is high here as we are under dosing her. I have added mealtime insulin of 4 units and increased her SSI to moderate. This should provide her close to her normal amount of insulin. Will adjust depending on her pattern. (3) Hyperlipidemia: Code(s): E78.5 - Hyperlipidemia, unspecified Status: Chronic Assessment and Plan: -----Continue with atorvastatin (4) UTI (urinary tract infection): Qualifiers: Urinary tract infection type: urethritis Qualified Code(s): N34.2 - Other urethritis Code(s): N39.0 - Urinary tract infection, site not specified Status: Acute Assessment and Plan: -----Urine culture negative and blood culture still pending. Will finish off course of macrobid. (5) Glaucoma: Code(s): H40.9 - Unspecified glaucoma Status: Chronic Assessment and Plan: ----Continue with patient's eye drops . (6) Hypothyroidism: Code(s): E03.9 - Hypothyroidism, unspecified Status: Chronic Assessment and Plan: -----TSH normal. Continue levothyroxine. (7) HTN (hypertension), malignant: Code(s): I10 - Essential (primary) hypertension Status: Chronic Assessment and Plan: ------last blood pressure 151/47. She had some hypotension with surgery. Will monitor and continue home medications. P.r.n. hydralazine as needed (8) Congestive heart failure: Code(s): I50.9 - Heart failure, unspecified Status: Chronic Assessment and Plan: -----known diastolic dysfunction and is compensated at this time. Continue with medications as stated above. (9) Acute respiratory failure with hypoxia: Code(s): J96.01 - Acute respiratory failure with hypoxia Status: Acute Assessment and Plan: -----patient became hypoxic after getting morphine in the ER. This is being weaned down but this morning she reportedly had some hypoxia although it is not documented. I looked at the chest x-ray and I am considering pulmonary edema as an etiology at this time. Will check a BNP and add a small dose of Lasix. She has not had any cough. No fevers. Pneumonia seems less likely. She is on ceftriaxone at this time as stated above (10) Hyponatremia: Code(s): E87.1 - Hypo-osmolality and hyponatremia Status: Acute Assessment and Plan: -----likely due to pain. 131 today. Monitor (11) Coronary artery disease: Code(s): I25.10 - Atherosclerotic heart disease of [place] coronary artery without angina pectoris
--- NOTE | 2019-11-24 14:16 | PCPTNOTE ---
Attempted to see pt for PT evaluation. Pt agreeable to therapy and evaluation initiated with daughter in room however once daughter left pt states she's not getting out of bed or working with therapy secondary to fatigue and to come back later. Will try again at a later time.
--- NOTE | 2019-11-24 14:57 | PCPTNOTE ---
Re-attempted to evaluate the patient for physical therapy as ordered and patient has refused again. Will attempt therapy eval again in the morning. Nursing and MD office notified. Risa Osman PT
[2019-11-24] MEDS: DOCUSATE SODIUM 100 MG CAPSULE PO (16:49)
--- NOTE | 2019-11-24 17:07 | PCRCNOTE ---
pt refused IS/did not want it in her room
[2019-11-24 17:08] LABS: Glucose Point of Care 178 (65-105)
[2019-11-24 17:11] LABS: Glucose Point of Care 170 (65-105)
--- NOTE | 2019-11-24 18:19 | PC.NURSE ---
Patient arguing with nursing staff in regards to care. She has refused therapy twice this afternoon. She is now adamant that she wants to walk around the room and go into the restroom. Discussed at length with patient's and patient in regards to benefits of therapy and risks of refusing. Patient's stating You can't keep her here just because shes refusing. What are even the benefits of it? She can walk, she did before surgery. Again, discussed in length and educated to the best of my ability.
[2019-11-24] MEDS: NITROFURANTOIN MONOHYD MACROCR 100 MG CAP PO (20:23)
[2019-11-24] MEDS: ATORVASTATIN 40 MG TABLET PO (20:23)
[2019-11-24] MEDS: LATANOPROST 0.005% OP SOLN 2.5 ML BTL 1 DROP EACH EYE (20:31)
[2019-11-24] MEDS: INSULIN GLARGINE (*BKC) 100 UNITS/ML 18 UNITS SUB-Q (20:38)
[2019-11-24 22:40] LABS: Glucose Point of Care 221 (65-105)
[2019-11-25] VITALS (11 sets, daily range): BP systolic 136–174; BP diastolic 50–68; PULSE 74–91; RESP 18–20; TEMP 36.2–36.7; O2SAT 88–99
[2019-11-25 05:26] LABS: Basophils Percent Auto 0.2 % (0.2-1.2); Eosinophils Percent Auto 11.1 % (0-4.4); Hematocrit 34.1 % (37.0-47.0); Immature Granulocyte Absolute 0.02 K/mm3 (0.00-0.031); Immature Granulocyte Percent A 0.2 % (0-0.5); Lymphocytes Absolute Auto 0.53 K/mm3 (0.9-3.2); Lymphocytes Percent Auto 5.7 % (18.3-44.2); Mean Corpuscular HGB Conc 32.3 g/dl (32-36); Mean Corpuscular Hemoglobin 28.9 pg (26-34); Mean Corpuscular Volume 89.5 fl (80-100); Monocytes Absolute Auto 1.1 K/mm3 (0.1-0.6); Monocytes Percent Auto 11.4 % (2.6-8.5); Neutrophils Absolute Auto 6.7 K/mm3 (1.3-6.7); Neutrophils Percent Auto 71.4 % (45.5-73.1); Platelet Count Result 158 k/mm3 (150-375); Red Blood Count 3.81 M/mm3 (4.2-5.4); Red Cell Distribution Width 12.8 % (11.5-14.5); White Blood Count 9.4 K/mm3 (4.5-10.0)
[2019-11-25 05:36] LABS: Blood Urea Nitrogen 19 mg/dL (7-17); Calcium 8.4 mg/dL (8.4-10.2); Carbon Dioxide 29 mmol/L (22-30); Chloride 99 mmol/L (98-107); Estimated CRCL calculation 40 ml/min; Estimated Glomerular Filt Rate 53; Glucose 285 mg/dL (65-105); Potassium 4.1 mmol/L (3.4-5.0); Sodium 134 mmol/L (137-145)
[2019-11-25] MEDS: ONDANSETRON INJ 4 MG/2 ML VIAL IV PUSH (06:07)
[2019-11-25 07:50] LABS: Glucose Point of Care 296 (65-105)
[2019-11-25] MEDS: LEVOTHYROXINE SODIUM 100 MCG TABLET PO (08:21)
--- NOTE | 2019-11-25 08:21 | WPDANESPN ---
Anes - Prog Note Post-Op Date/Time: 11/25/19 08:21 Cardiovascular status: normal Respiratory status: normal Airway patency: baseline Mental status: baseline Post-Op hydration status: normal Vital Signs: Last Vital Signs Temp 36.3 C L 11/25/19 06:00 Pulse 86 11/25/19 06:00 Resp 20 11/25/19 06:00 BP 168/61 H 11/25/19 06:00 Pulse Ox 99 11/25/19 06:00 I/O: Intake & Output 11/24/19 11/25/19 11/25/19 23:59 07:59 15:59 Intake Total 876 Output Total 150 Balance 726 Laboratory Tests 11/25/19 05:07 11/25/19 05:07 11/24/19 11/24/19 11/24/19 09:30 10:57 12:08 WBC RBC Hgb Hct MCV MCH MCHC RDW Plt Count MPV Immature Gran % (Auto) Neut % (Auto) Lymph % (Auto) [place] % (Auto) Eos % (Auto) Baso % (Auto) Lymph # (Auto) [place] # (Auto) Eos # (Auto) Baso # (Auto) Abs Immat Gran (auto) Absolute Neuts (auto) Absolute Nucleated RBC Nucleated RBC % Sodium Potassium Chloride Carbon Dioxide BUN Creatinine Estim Creat Clear Calc Estimated GFR Glucose POC Capillary Glucose 310 H 248 H 202 H Calcium 11/24/19 11/24/19 11/24/19 16:16 16:46 20:34 WBC RBC Hgb Hct MCV MCH MCHC RDW Plt Count MPV Immature Gran % (Auto) Neut % (Auto) Lymph % (Auto) [place] % (Auto) Eos % (Auto) Baso % (Auto) Lymph # (Auto) [place] # (Auto) Eos # (Auto) Baso # (Auto) Abs Immat Gran (auto) Absolute Neuts (auto) Absolute Nucleated RBC Nucleated RBC % Sodium Potassium Chloride Carbon Dioxide BUN Creatinine Estim Creat Clear Calc Estimated GFR Glucose POC Capillary Glucose 170 H 178 H 221 H Calcium 11/25/19 11/25/19 11/25/19 05:07 05:07 07:48 WBC 9.4 RBC 3.81 L Hgb 11.0 L Hct 34.1 L MCV 89.5 MCH 28.9 MCHC 32.3 RDW 12.8 Plt Count 158 MPV 10.0 Immature Gran % (Auto) 0.2 Neut % (Auto) 71.4 Lymph % (Auto) 5.7 L [place] % (Auto) 11.4 H Eos % (Auto) 11.1 H Baso % (Auto) 0.2 Lymph # (Auto) 0.53 L [place] # (Auto) 1.1 H Eos # (Auto) 1.0 H Baso # (Auto) 0.0 Abs Immat Gran (auto) 0.02 Absolute Neuts (auto) 6.7 Absolute Nucleated RBC 0.0 Nucleated RBC % 0.0 Sodium 134 L Potassium 4.1 Chloride 99 Carbon Dioxide 29 BUN 19 H Creatinine 1.00 Estim Creat Clear Calc 40 Estimated GFR 53 L Glucose 285 H POC Capillary Glucose 296 H Calcium 8.4 Microbiology 11/23/19 15:30 Blood Blood Culture - Preliminary 11/23/19 15:29 Blood Blood Culture - Preliminary Post-procedural complaints: none Patient Feedback: Patient satisfied with anesthetic care.
[2019-11-25] MEDS: INSULIN ASPART (*BKC) 100 UNITS/ML SUB-Q ×6 (08:22→18:10)
[2019-11-25] MEDS: FONDAPARINUX SODIUM 2.5 MG/0.5 ML SYRINGE SUB-Q (08:46)
--- NOTE | 2019-11-25 08:58 | PM.IMPN ---
Progress Note: A&P Assessment and Plan (1) Closed fracture of left hip: Qualifiers: Encounter type: initial encounter Qualified Code(s): S72.002A - Fracture of unspecified part of neck of left femur, initial encounter for closed fracture Code(s): S72.002A - Fracture of unspecified part of neck of left femur, initial encounter for closed fracture Status: Acute Assessment and Plan: ----postop day 1 of left hip pinning Patient is doing well with pain control. She is having a little confusion this morning and I will put in neurological checks. She has absolutely no neurological deficits him this is likely due to recent anesthesia. Glucose 296. Will monitor. Anticoagulation and PT OT per Ortho. (2) DM2 (diabetes mellitus, type 2): Qualifiers: Diabetes mellitus termite control representative insulin use: with termite control representative use Diabetes mellitus complication status: with neurologic complications Diabetes mellitus complication detail: with other neurological complication Qualified Code(s): E11.49 - Type 2 diabetes mellitus with other diabetic neurological complication; Z79.4 - terminal clerk (current) use of insulin Code(s): E11.9 - Type 2 diabetes mellitus without complications Status: Chronic Assessment and Plan: -----patient's A1c is 9 so her diabetes is uncontrolled at baseline. I had a long discussion with the patient and her family 11/23 about the importance improving her blood glucose for healing. They said that she takes a sliding scale at home and averages anywhere between 8 and 12 units of insulin. That is likely why she is high here as we are under dosing her. I have added mealtime insulin of 4 units and increased her SSI to moderate. This should provide her close to her normal amount of insulin. Lantus has been increased tonight to 22 units. Will adjust depending on her pattern. (3) Hyperlipidemia: Code(s): E78.5 - Hyperlipidemia, unspecified Status: Chronic Assessment and Plan: -----Continue with atorvastatin (4) UTI (urinary tract infection): Qualifiers: Urinary tract infection type: urethritis Qualified Code(s): N34.2 - Other urethritis Code(s): N39.0 - Urinary tract infection, site not specified Status: Acute Assessment and Plan: -----Urine culture negative and blood cultures are negative to date. Will finish off course of macrobid. (5) Glaucoma: Code(s): H40.9 - Unspecified glaucoma Status: Chronic Assessment and Plan: ----Continue with patient's eye drops . (6) Hypothyroidism: Code(s): E03.9 - Hypothyroidism, unspecified Status: Chronic Assessment and Plan: -----TSH normal. Continue levothyroxine. (7) HTN (hypertension), malignant: Code(s): I10 - Essential (primary) hypertension Status: Chronic Assessment and Plan: ------last blood pressure 168/61 before her morning meds. P.r.n. hydralazine as needed (8) Congestive heart failure: Code(s): I50.9 - Heart failure, unspecified Status: Chronic Assessment and Plan: -----known diastolic dysfunction and is compensated at this time. Continue with medications as stated above. (9) Acute respiratory failure with hypoxia: Code(s): J96.01 - Acute respiratory failure with hypoxia Status: Acute Assessment and Plan: -----patient is still on oxygen but it looks like her oxygen is 99%. Will wean oxygen. She was likely hypoxic due to pain medications. Shows small bilateral pleural effusions. Continue Lasix (10) Hyponatremia: Code(s): E87.1 - Hypo-osmolality and hyponatremia Status: Acute Assessment and Plan: -----improved to 134 today. Likely due to pain. Monitor (11) Coronary artery disease: Code(s): I25.10 - Atherosclerotic heart disease of [place] coronary artery without angina pectoris Status: Acute
[2019-11-25] MEDS: POTASSIUM CHLORIDE 10 MEQ TABLET.ER PO (09:17)
[2019-11-25] MEDS: DOCUSATE SODIUM 100 MG CAPSULE PO ×2 (09:17→18:06)
[2019-11-25] MEDS: LOSARTAN POTASSIUM 25 MG TABLET PO (09:17)
[2019-11-25] MEDS: CLOPIDOGREL BISULFATE 75 MG TABLET PO (09:17)
[2019-11-25] MEDS: NITROFURANTOIN MONOHYD MACROCR 100 MG CAP PO ×2 (09:17→21:30)
[2019-11-25] MEDS: DULoxetine HCL 60 MG CAPSULE.DR PO (09:18)
[2019-11-25] MEDS: FUROSEMIDE 40 MG TABLET PO (09:18)
[2019-11-25] MEDS: FAMOTIDINE 20 MG/2 ML VIAL IV PUSH ×2 (09:18→21:30)
[2019-11-25] MEDS: carvediloL 3.125 MG TABLET PO ×2 (09:18→21:30)
[2019-11-25] MEDS: AMLODIPINE BESYLATE 5 MG TABLET PO (09:18)
[2019-11-25] MEDS: DORZOLAMIDE HCL 2% OPHTH DROPS 1 DROP EACH EYE ×2 (09:18→18:06)
[2019-11-25] MEDS: ASPIRIN 81 MG ENTERIC TABLET PO (09:18)
[2019-11-25] MEDS: polyethylene glycoL 3350 17 GM POWD.PACK PO (09:23)
[2019-11-25] MEDS: IBUPROFEN IV 800 MG/200 ML 800 MG/200 ML BAG 400 MG IVPB (09:47)
--- NOTE | 2019-11-25 09:50 | PM.PNORT ---
Progress Note: A&P Assessment and Plan (1) Closed fracture of left hip: Qualifiers: Encounter type: initial encounter Qualified Code(s): S72.002A - Fracture of unspecified part of neck of left femur, initial encounter for closed fracture Code(s): S72.002A - Fracture of unspecified part of neck of left femur, initial encounter for closed fracture Status: Acute Assessment and Plan: POD #1: LEFT Hip Pinning PT/OT. WBAT. Walker. Fall Risk. Continue pain control. Ice lateral hip. DVT prophylaxis with Arixtra x28 days. SCDs. Incentive spirometry. TRC consult. Remove pop catheter after 1st session with PT. Will continue to follow. Dispo: TRC consult pending Follow up appointment scheduled for 5 weeks [address] op with Dr. Del Rio. Subjective Subjective Date/Time Seen: 11/25/19 0800 POD #1: Left Hip Pinning Patient alert this AM, up eating breakfast. Complaints of mild nausea. Answering questions appropriately but mild confusion to situation. Pain well controlled. No c/o SOB. Overall, feeling weak. Review of Systems Constitutional: Constitutional: Denies chills, Reports fatigue, Reports lethargy, Denies night sweats and Reports weakness Cardiovascular: Cardiovascular: Denies chest pain and Denies lightheadedness Respiratory: Respiratory: Denies cough and Denies dyspnea Comments: requiring NC 02 Gastrointestinal: Gastrointestinal: Denies abdominal pain, Denies diarrhea, Reports nausea (mild this AM ) and Denies vomiting Genitourinary: Comments: Pop catheter Musculoskeletal: Musculoskeletal: Reports arthralgias (left hip/thigh ), Reports joint swelling (left hip ) and Denies numbness Exam Const: General: comfortable and no acute distress Other: Mildly decreased mentation, confusion to situation Resp: Effort & Inspection: normal respiratory effort Cardio: Rate: regular rate Rhythm: regular rhythm GI: Inspection: non-distended Urinary Catheter: Urinary Catheter: patent and draining and urine clear Neuro: Cognition (Neuro): normal cognition (confusion to situation ) Extrem: Left lower extremity: hip/thigh Details: tenderness Location: of the hip Location: laterally, swelling Location: of the hip (hip/thigh- mild. thigh soft/mildly tender ) and abnormal ROM (limited due to recent fracture/hip pinning ), knee Details: normal to inspection; no tenderness and no swelling, lower leg (negative Suzy's Sign ) Details: normal to inspection, ankle (+ankle dorsiflexion/plantarflexion ) Details: normal to inspection and no edema; no tenderness and no swelling and foot Details: normal capillary refill, normal to inspection, toes with normal ROM, vascular exam Details: dorsalis pedis pulse present and posterior tibial pulse present and motor-sensory exam two point discrimination normal and light-touch normal; no tenderness Objective Data Vital Signs Vital Signs: Vital Signs - 24 hr 11/24/19 09:57 11/24/19 10:50 11/24/19 11:05 Temperature 36.5 C 36.1 C L Pulse Rate 87 62 74 Respiratory Rate 18 12 20 Blood Pressure 179/62 H 91/54 L 133/44 L Pulse Oximetry 99 100 92 11/24/19 11:20 11/24/19 11:35 11/24/19 12:10 Temperature 36.1 C L Pulse Rate 73 76 74 Respiratory Rate 15 25 H 17 Blood Pressure 122/89 137/49 L 116/85 Pulse Oximetry 96 96 98 11/24/19 12:25 11/24/19 12:55 11/24/19 13:55 Temperature 36.1 C L 36.0 C L 36.0 C L Pulse Rate 86 81 83 Respiratory Rate 16 18 19 Blood Pressure 141/58 H 151/47 H 152/50 H Pulse Oximetry 100 99 97 11/24/19 18:00 11/24/19 20:23 11/24/19 20:47 Temperature 36.3 C L Pulse Rate 81 80 Respiratory Rate 16 Blood Pressure 151/62 H Pulse Oximetry 98 98 11/24/19 22:00 11/25/19 02:00 11/25/19 06:00 Temperature 36.1 C L 36.2 C L 36.3 C L Pulse Rate 85 91 86 Respiratory Rate 20 18 20 Blood Pressure 145/58 H 151/56 H 168/61 H Pulse Oximetry 99 96 99 11/25/19 09:18 Temperature Pulse Rate 86 Respiratory Rate Blood
[2019-11-25 11:49] LABS: Glucose Point of Care 299 (65-105)
[2019-11-25 16:58] LABS: Glucose Point of Care 250 (65-105)
[2019-11-25] MEDS: LATANOPROST 0.005% OP SOLN 2.5 ML BTL 1 DROP EACH EYE (21:30)
[2019-11-25] MEDS: ATORVASTATIN 40 MG TABLET PO (21:30)
[2019-11-25] MEDS: INSULIN GLARGINE (*BKC) 100 UNITS/ML 22 UNITS SUB-Q (21:41)
[2019-11-25 22:02] LABS: Glucose Point of Care 190 (65-105)
[2019-11-26] MEDS: IBUPROFEN IV 800 MG/200 ML 800 MG/200 ML BAG 400 MG IVPB (02:13)
[2019-11-26 05:00] VITALS: BP 166/58; PULSE 87; RESP 18; TEMP 36.3; O2SAT 100
[2019-11-26 05:27] LABS: Hematocrit 32.5 % (37.0-47.0); Hemoglobin 10.6 g/dL (12.0-15.0)
[2019-11-26 05:39] LABS: Blood Urea Nitrogen 20 mg/dL (7-17); Calcium 8.4 mg/dL (8.4-10.2); Carbon Dioxide 32 mmol/L (22-30); Chloride 100 mmol/L (98-107); Estimated CRCL calculation 44 ml/min; Estimated Glomerular Filt Rate 60; Glucose 158 mg/dL (65-105); Magnesium 2.1 mg/dL (1.6-2.3); Potassium 3.6 mmol/L (3.4-5.0); Sodium 136 mmol/L (137-145)
[2019-11-26] MEDS: LEVOTHYROXINE SODIUM 100 MCG TABLET PO (06:34)
[2019-11-26] MEDS: LOSARTAN POTASSIUM 50 MG TABLET PO (08:59)
[2019-11-26] MEDS: DULoxetine HCL 60 MG CAPSULE.DR PO (08:59)
[2019-11-26] MEDS: POTASSIUM CHLORIDE 10 MEQ TABLET.ER PO (08:59)
[2019-11-26] MEDS: AMLODIPINE BESYLATE 5 MG TABLET PO (09:00)
[2019-11-26] MEDS: FUROSEMIDE 40 MG TABLET PO (09:00)
[2019-11-26] MEDS: CLOPIDOGREL BISULFATE 75 MG TABLET PO (09:00)
[2019-11-26] MEDS: ASPIRIN 81 MG ENTERIC TABLET PO (09:00)
[2019-11-26] MEDS: DORZOLAMIDE HCL 2% OPHTH DROPS 1 DROP EACH EYE ×2 (09:00→16:23)
[2019-11-26] MEDS: FAMOTIDINE 20 MG/2 ML VIAL IV PUSH (09:00)
[2019-11-26] MEDS: NITROFURANTOIN MONOHYD MACROCR 100 MG CAP PO (09:00)
[2019-11-26] MEDS: DOCUSATE SODIUM 100 MG CAPSULE PO ×2 (09:00→16:23)
[2019-11-26] MEDS: polyethylene glycoL 3350 17 GM POWD.PACK PO (09:01)
[2019-11-26] MEDS: FONDAPARINUX SODIUM 2.5 MG/0.5 ML SYRINGE SUB-Q (09:01)
[2019-11-26 09:02] VITALS: PULSE 76
[2019-11-26] MEDS: carvediloL 3.125 MG TABLET PO (09:02)
[2019-11-26] MEDS: INSULIN ASPART (*BKC) 100 UNITS/ML SUB-Q ×3 (09:08→16:20)
[2019-11-26 09:10] LABS: Glucose Point of Care 138 (65-105)
[2019-11-26 10:00] VITALS: BP 144/52; PULSE 73; RESP 18; TEMP 36.3; O2SAT 99
[2019-11-26 10:27] VITALS: O2SAT 93
[2019-11-26 10:37] VITALS: PULSE 70; RESP 18; O2SAT 93
[2019-11-26 11:59] LABS: Glucose Point of Care 197 (65-105)
[2019-11-26 14:00] VITALS: BP 122/40; PULSE 74; RESP 20; TEMP 36.6; O2SAT 97
--- NOTE | 2019-11-26 15:17 | PM.DS ---
DS: Admitting Diagnosis Admitting Diagnosis Admitting Diagnosis: Fracture of unspecified part of neck of left femur, initial encounter for closed fracture DS: Discharge Diagnosis Discharge Diagnosis (1) Closed fracture of left hip: Qualifiers: Encounter type: initial encounter Qualified Code(s): S72.002A - Fracture of unspecified part of neck of left femur, initial encounter for closed fracture Code(s): S72.002A - Fracture of unspecified part of neck of left femur, initial encounter for closed fracture Status: Acute Assessment and Plan: ----S/P left hip pinning Patient is doing well with pain control. Patient's pain was well controlled, confusion had resolved, and patient did well with physical therapy. I spoke with KATHY Deluca who said that the was there for the therapy session and he spoke with the about the plan of care at home. does not want her to go to rehab center and plans to take care of her at home. They could not afford the Arixtra at discharge and I spoke with Dr. Del Rio who recommended aspirin 325 mg b.i.d.. (2) DM2 (diabetes mellitus, type 2): Qualifiers: Diabetes mellitus intermediate accountant insulin use: with snf use Diabetes mellitus complication status: with neurologic complications Diabetes mellitus complication detail: with other neurological complication Qualified Code(s): E11.49 - Type 2 diabetes mellitus with other diabetic neurological complication; Z79.4 - termite renewal inspector (current) use of insulin Code(s): E11.9 - Type 2 diabetes mellitus without complications Status: Chronic Assessment and Plan: -----patient's A1c is 9 so her diabetes is uncontrolled at baseline. I had a long discussion with the patient and her family 11/23 about the importance improving her blood glucose for healing. They said that she takes a sliding scale at home and averages anywhere between 8 and 12 units of insulin. She should continue with her home insulin routine and follow-up with her primary care physician. glucose at discharge 190. (3) Hyperlipidemia: Code(s): E78.5 - Hyperlipidemia, unspecified Status: Chronic Assessment and Plan: -----Continue with atorvastatin (4) UTI (urinary tract infection): Qualifiers: Urinary tract infection type: urethritis Qualified Code(s): N34.2 - Other urethritis Code(s): N39.0 - Urinary tract infection, site not specified Status: Acute Assessment and Plan: -----Urine culture negative and blood cultures are negative to date. Her antibiotic that was prescribed outpatient was finished during hospitalization. (5) Glaucoma: Code(s): H40.9 - Unspecified glaucoma Status: Chronic Assessment and Plan: ----Continue with patient's eye drops . (6) Hypothyroidism: Code(s): E03.9 - Hypothyroidism, unspecified Status: Chronic Assessment and Plan: -----TSH normal. Continue levothyroxine. (7) HTN (hypertension), malignant: Code(s): I10 - Essential (primary) hypertension Status: Chronic Assessment and Plan: ------last blood pressure 122/40. Continue with home meds (8) Congestive heart failure: Code(s): I50.9 - Heart failure, unspecified Status: Chronic Assessment and Plan: -----known diastolic dysfunction and is compensated at this time. Continue with medications as stated above. (9) Acute respiratory failure with hypoxia: Code(s): J96.01 - Acute respiratory failure with hypoxia Status: Acute Assessment and Plan: -----patient was able to be weaned off oxygen. (10) Hyponatremia: Code(s): E87.1 - Hypo-osmolality and hyponatremia Status: Acute Assessment and Plan: -----resolved (11) Coronary artery disease: Code(s): I25.10 - Atherosclerotic heart disease of [place] coronary artery without angina pectoris
[2019-11-26 18:15] LABS: Glucose Point of Care 190 (65-105)
--- NOTE | 2019-11-30 10:45 | PC.NURSE ---
Blood cx is negative.
== END 2019-11-26 18:25 | disposition home health service (06) | DRG 480 ==
LOC: ANHED 17:59 → ANH2MED 11-23 07:10
PROVIDERS: Emergency Medicine Emergency Medical Services; Nurse Practitioner; Orthopaedic Surgery; Physician Assistant; Admitting Provider Family Medicine; Emergency Provider Emergency Medicine; PCP Internal Medicine; Visit Provider Internal Medicine
PROC: 0QS734Z Reposition Left Upper Femur with Internal Fixation Device, Percutaneous Approach (ICD-10-PCS; principal; 2019-11-24 09:30)
DX: S72.012A Unspecified intracapsular fracture of left femur, initial encounter for closed fracture (principal); J96.01 Acute respiratory failure with hypoxia; N39.0 Urinary tract infection, site not specified; I50.32 Chronic diastolic (congestive) heart failure; E87.1 Hypo-osmolality and hyponatremia; W05.0XXA Fall from non-moving wheelchair, initial encounter; Y92.099 Unspecified place in other non-institutional residence as the place of occurrence of the external cause; Z79.4 Long term (current) use of insulin; Z79.01 Long term (current) use of anticoagulants; E11.49 Type 2 diabetes mellitus with other diabetic neurological complication; I25.10 Atherosclerotic heart disease of native coronary artery without angina pectoris; I11.0 Hypertensive heart disease with heart failure; E03.9 Hypothyroidism, unspecified; E78.5 Hyperlipidemia, unspecified; I25.2 Old myocardial infarction; Z95.5 Presence of coronary angioplasty implant and graft; H40.9 Unspecified glaucoma; T40.2X5A Adverse effect of other opioids, initial encounter; Y92.238 Other place in hospital as the place of occurrence of the external cause
CPT/HCPCS: 36415; 70450; 71046; 71101; 73502; 80048; 80076; 83036; 83735; 83880; 84443; 85014; 85018; 85025; 85027; 85610; 85730; 86140; 86850; 86900; 86901; 87040; 87086; 93005; 93306; 96361; 96365; 96375; 97110; 97116; 97161; 97166; 97530; 97535; 99285; A9270; C1713; J0131; J0360; J0690; J0696; J1652; J1741; J1815; J1940; J2060; J2250; J2270; J2405; J2704; J3010; J3480; J7030; J7120; Q9957

== ENCOUNTER 2020-01-19 10:54 | Outpatient (CLI) | payer MEDICARE, OTHER, SELFPAY ==
[2020-01-19 11:52] LABS: Hemoglobin 12.2 g/dL (12.0-15.0); Mean Corpuscular Hemoglobin 29.3 pg (26-34); Mean Corpuscular Volume 88.9 fl (80-100); Mean Platelet Volume 9.5 fl (7.4-10.4); Platelet Count Result 213 k/mm3 (150-375); Red Blood Count 4.16 M/mm3 (4.2-5.4); Red Cell Distribution Width 12.9 % (11.5-14.5); White Blood Count 6.2 K/mm3 (4.5-10.0)
[2020-01-19 12:04] LABS: Hemoglobin A1C 8.1 % (<5.7)
[2020-01-19 12:09] LABS: Alanine Aminotransferase 11 U/L (4-35); Albumin Level 3.4 g/dL (3.5-5.1); Alkaline Phosphatase 152 U/L (38-126); Anion Gap 3 mmol/L (8-16); Aspartate Amino Transferase 21 U/L (14-36); Bilirubin,Total 0.3 mg/dL (0.2-1.3); Blood Urea Nitrogen 15 mg/dL (7-17); Calcium 8.8 mg/dL (8.4-10.2); Carbon Dioxide 33 mmol/L (22-30); Chloride 102 mmol/L (98-107); Estimated Glomerular Filt Rate > 60; Glucose 208 mg/dL (65-105); Potassium 4.4 mmol/L (3.4-5.0); Sodium 138 mmol/L (137-145)
[2020-01-19 12:19] LABS: Erythrocyte Sedimentation Rate 23 mm/hr (0-20)
[2020-01-19 12:31] LABS: Iron 51 ug/dL (37-170)
[2020-01-19 12:41] LABS: Percent Iron Saturation 16 % (20-50)
[2020-01-19 13:30] LABS: Folic Acid > 20.0 ng/mL (2.76->20)
== END 2020-01-19 10:55 | disposition home or self-care (01) ==
PROVIDERS: PCP Internal Medicine; Visit Provider Physician Assistant Medical
DX: R53.83 Other fatigue (principal); E11.9 Type 2 diabetes mellitus without complications; N95.1 Menopausal and female climacteric states
CPT/HCPCS: 36415; 80053; 82607; 82728; 82746; 83036; 83540; 83550; 83735; 84443; 85027; 85652

== ENCOUNTER 2020-01-30 10:57 | Outpatient (CLI) | payer MEDICARE, OTHER, SELFPAY ==
--- NOTE | ~2020-01-30 | CT_ITS ---
EXAMINATION:CT chest wo con DATE: 01/30/2020 11:55 INDICATION: Abnormal chest radiographs. Thoracic aortic aneurysm. TECHNIQUE: Computed tomography (CT) of the chest was performed without intravenous contrast. Automate d exposure control and iterative reconstruction technique were employed. The dose-length product (DLP ) was 223.26 mGy-cm. COMPARISON: Chest 2 views 11/24/2019, CT abdomen and pelvis 01/13/2019 FINDINGS: Calcified pulmonary nodules and calcified hilar and mediastinal lymph nodes are consistent with old granulomatous disease. There is mild scarring at the lung apices. There is mosaic attenuatio n in the lungs, likely small airways disease. There are a few nodules in the lungs measuring up to 4 mm, likely benign. There is a small right pleural effusion. The heart size is normal. There are coron servando artery calcifications. No pericardial effusion. There is a right subclavian port with tip in supe rior vena cava. There are widespread arterial calcifications. There is mild atrophy of right kidney. Partially visualized are stones in the right kidney measuring up to 8 mm. Thoracic aorta is normal in caliber. Aortic atherosclerosis is noted. There are widespread arterial calcifications. There are mu ltiple healing/healed right rib fractures. There is severe thoracic and cervical spondylosis. IMPRESSION: 1. Aortic atherosclerosis. No aneurysm. 2. Chronic small right pleural effusion. 3. Right kidney stones. Reviewed, dictated and finalized at [facility].
== END 2020-01-30 10:58 | disposition home or self-care (01) ==
PROVIDERS: PCP Internal Medicine; Visit Provider Physician Assistant Medical
DX: R93.89 Abnormal findings on diagnostic imaging of other specified body structures (principal); I70.0 Atherosclerosis of aorta; J90 Pleural effusion, not elsewhere classified; N20.0 Calculus of kidney
CPT/HCPCS: 71250

== ENCOUNTER 2020-03-29 17:11 | Emergency (ER) | payer MEDICARE, OTHER, SELFPAY ==
--- NOTE | ~2020-03-29 | CT_ITS ---
EXAMINATION: CT abdomen pelvis wo con DATE: 03/29/2020 19:29 INDICATION: Right flank pain TECHNIQUE: Computed tomography (CT) of the abdomen and pelvis was performed without intravenous contr ast. Automated exposure control and iterative reconstruction technique were employed. Exam dose: 106 5.93 mGy-cm total exam DLP. COMPARISON: 01/13/2019 CT abdomen pelvis FINDINGS: There are multiple calcified granulomas bilaterally. There is mild right pleural effusion and mild atelectasis at the right lung base. Heart size is within upper limits normal. There is prominent mitral annulus calcification. Coronary a rtery calcification. No hepatic space-occupying mass lesion is evident. The gallbladder is present. Normal splenic size. T here is prominent pancreatic atrophy. Normal morphology of the adrenal glands. There is bilateral renal scarring, more prominent on the right, with asymmetric diminished size of th e right kidney. There is prominence of the right renal pelvis suggesting right ureteropelvic dispropo rtion. There are several nonobstructing calculi in the dependent aspect of the right renal pelvis, measuring up to approximately 11 mm maximal dimension. Approximately 2 mm nonobstructing left renal calculus. No ureteral calculi or hydroureter. There is extensive calcification of the abdominal aorta, celiac, superior mesenteric, proximal renal arteries, inferior mesenteric artery and iliac and femoral arteries. No abdominal aortic aneurysm. No intraperitoneal or retroperitoneal or pelvic mass lesion or adenopathy or ascites. The urinary bladder is unremarkable. There is a prominent amount of air within the colon but no apparent bowel obstruction. No intraperito emmanuel free air. Small fat-containing umbilical hernia. There are several pins in the proximal left femur, terminating in the left femoral head, providing in ternal fixation for left subcapital femoral neck fracture. Prominent degenerative disc disease in the lower thoracic and lumbar spine, particularly severe degen erative disc disease from L2-3 through L5-S1. IMPRESSION: Moderate pleural effusion Bilateral renal scarring Probable right ureteropelvic disproportion Multiple nonobstructing right renal pelvic stones, measuring up to 11 mm 2 mm left renal nonobstructing calculus Severe aortic, celiac, superior and inferior mesenteric, renal iliac and femoral artery calcification s; no abdominal aortic aneurysm Reviewed, dictated and finalized at [facility]. Reviewed, dictated and finalized at [facility]. M FITTER HELPER IMPRESSION: Moderate pleural effusion Bilateral renal scarring Probable right ureteropelvic disproportion Multiple nonobstructing right renal pelvic stones, measuring up to 11 mm 2 mm left renal nonobstructing calculus Severe aortic, celiac, superior and inferior mesenteric, renal iliac and femora l artery calcifications; no abdominal aortic aneurysm
[2020-03-29 18:18] VITALS: BP 148/55; PULSE 67; RESP 16; TEMP 36.1; O2SAT 95
--- NOTE | 2020-03-29 19:09 | ED.ABDPAIN ---
HPI - Abdominal Pain General Chief Complaint: Back Pain/Injury Stated Complaint: low back pain Time Seen by Provider: 03/29/20 18:51 Source: patient Mode of arrival: ambulatory Limitations: no limitations History of Present Illness HPI narrative: Patient is an 79-year-old female complaining of right flank pain, 8 out of 10 earlier, now the pain is 2 out of 10, sharp, nonradiating accompanied by nausea vomiting that started today. Patient also complaining of increased urinary frequency. Patient denies any injury. Patient denies any chest pain, shortness of breath, abdominal pain, diarrhea or fever. Patient currently denies being nauseated and does not waiting for pain. Related Data Home Medications Medication Instructions Recorded Confirmed Lantus U-100 Insulin 24 unit SUBCUT QPM 11/22/19 01/03/20 amlodipine 5 mg PO DAILY 11/22/19 01/03/20 aspirin [Aspirin Low Dose] 81 mg PO DAILY 11/22/19 01/03/20 atorvastatin 40 mg PO HS 11/22/19 01/03/20 carvedilol 3.125 mg PO BID 11/22/19 01/03/20 clopidogrel 75 mg PO DAILY 11/22/19 01/03/20 dorzolamide 1 drp OPHTHALMIC (EYE) BID 11/22/19 01/03/20 duloxetine 60 mg PO DAILY 11/22/19 01/03/20 furosemide 40 mg PO DAILY 11/22/19 01/03/20 insulin lispro [Humalog U-100 1 sliding scale dose SUBCUT 11/22/19 01/03/20 Insulin] USEASDIRECTD latanoprost 1 drp OPHTHALMIC (EYE) QPM 11/22/19 01/03/20 levothyroxine 100 mcg PO DAILY 11/22/19 01/03/20 potassium chloride 10 meq PO DAILY 11/22/19 01/03/20 Allergies Allergy/AdvReac Type Severity Reaction Status Date / Time prednisone AdvReac Mild Other Verified 03/29/20 18:24 clopidogrel AdvReac Unknown Other Verified 03/29/20 18:23 simvastatin AdvReac Unknown Muscle Verified 03/29/20 18:24 Spasms Review of Systems Review of Systems: All systems reviewed & are unremarkable except as noted in HPI and below Constitutional: Constitutional: Denies body ache(s), Denies chills, Denies excessive sweating, Denies fatigue, Denies fever(s), Denies headache(s), Denies lethargy, Denies malaise, Denies weakness and Denies weight loss Eyes: Eyes: Denies blurry vision, Denies change in vision and Denies loss of vision ENT: Denies dizziness, Denies ear discharge, Denies headache(s), Denies lip swelling, Denies epistaxis, Denies nasal congestion, Denies neck pain, Denies throat swelling and Denies tongue swelling Cardiovascular: Cardiovascular: Denies chest pain, Denies chest pain at rest, Denies chest pain with activity, Denies diaphoresis, Denies rapid heart rate, Denies edema, Denies irregular heart rhythm, Denies lightheadedness, Denies palpitations, Denies dyspnea and Denies dyspnea on exertion Respiratory: Respiratory: Denies chest congestion, Denies cough, Denies hemoptysis, Denies dyspnea and Denies dyspnea on exertion Gastrointestinal: Gastrointestinal: Denies abdominal pain, Denies melena, Denies hematochezia, Denies diarrhea, Denies nausea, Denies vomiting and Denies hematemesis Musculoskeletal: Musculoskeletal: Denies abnormal gait, Denies deformity, Denies joint swelling, Denies limited range of motion, Denies neck pain and Denies numbness Neurologic: Denies Abnormal speech present, Denies abnormal gait, Denies confusion, Denies dizziness, Denies headache(s), Denies focal weakness, Denies loss of vision, Denies numbness, Denies Other visual disturbances, Denies Sensory deficit (Neuro) and Denies weakness Psychiatric: Psychiatric: Denies confusion, Denies depression, Denies auditory hallucinations, Denies homicidal ideation and Denies suicidal ideation Endocrine: Endocrine: Denies cold intolerance, Denies excessive sweating, Denies fatigue, Denies heat intolerance and Denies palpitations Hematologic/Lymphatic: Hematologic/Lymphatic: Denies easy bleeding and Denies easy bruising Allergic/Immunologic: Allergic/Immunologic: Denies lip swelling, Denies throat swelling and Denies tongue swelling PMF Past Medical History Medical History (Updated 03/29/20 @ 20
[2020-03-29 19:19] LABS: Basophils Percent Auto 0.3 % (0.2-1.2); Eosinophils Absolute Auto 0.4 K/mm3 (0-0.3); Eosinophils Percent Auto 4.9 % (0-4.4); Hematocrit 39.2 % (37.0-47.0); Hemoglobin 12.9 g/dL (12.0-15.0); Immature Granulocyte Absolute 0.03 K/mm3 (0.00-0.031); Immature Granulocyte Percent A 0.4 % (0-0.5); Lymphocytes Absolute Auto 0.71 K/mm3 (0.9-3.2); Lymphocytes Percent Auto 9.1 % (18.3-44.2); Mean Corpuscular HGB Conc 32.9 g/dl (32-36); Mean Corpuscular Hemoglobin 29.3 pg (26-34); Mean Corpuscular Volume 89.1 fl (80-100); Mean Platelet Volume 10.2 fl (7.4-10.4); Monocytes Absolute Auto 0.7 K/mm3 (0.1-0.6); Monocytes Percent Auto 8.3 % (2.6-8.5); Platelet Count Result 275 k/mm3 (150-375); Red Cell Distribution Width 12.9 % (11.5-14.5); White Blood Count 7.8 K/mm3 (4.5-10.0)
[2020-03-29 19:26] LABS: Add Urine Microscopic? YES; Appearance Urine Clear (Clear); Bacteria Urine Trace /hpf; Bilirubin Urine Negative (Negative); Blood Urine 1+ (Negative); Color Urine Yellow (Yellow); Glucose Urine UA Negative (Negative); Ketones Urine Negative (Negative); Leukocyte Esterase Ur Negative LEU/UL (Negative); Nitrate Urine Negative (Negative); Protein Urine Negative (Negative); RBC Urine 21-50 /hpf (0-2); Squamous Epithelial Cell Urine Rare /hpf (Few); Urobilinogen Urine Negative mg/dL (<2.0); WBC Urine 0-3 /hpf
[2020-03-29 19:32] LABS: Lipase 16 U/L (23-300)
[2020-03-29 19:42] LABS: Alanine Aminotransferase 14 U/L (4-35); Albumin Level 4.1 g/dL (3.5-5.1); Alkaline Phosphatase 164 U/L (38-126); Anion Gap 6 mmol/L (8-16); Aspartate Amino Transferase 28 U/L (14-36); Bilirubin,Total 0.6 mg/dL (0.2-1.3); Blood Urea Nitrogen 20 mg/dL (7-17); Calcium 9.3 mg/dL (8.4-10.2); Carbon Dioxide 34 mmol/L (22-30); Chloride 98 mmol/L (98-107); Estimated CRCL calculation 44 ml/min; Estimated Glomerular Filt Rate 60; Glucose 321 mg/dL (65-105); Potassium 4.7 mmol/L (3.4-5.0); Sodium 138 mmol/L (137-145)
[2020-03-29] MEDS: SODIUM CHLORIDE 0.9% IV 1,000 ML 999 ML IV CONT (19:54)
[2020-03-29] MEDS: cloNIDine HCL 0.1 MG TABLET PO (21:06)
[2020-03-29 21:19] VITALS: BP 190/127; PULSE 87; RESP 17; O2SAT 98
== END 2020-03-29 21:22 | disposition home or self-care (01) ==
PROVIDERS: Emergency Provider Emergency Medicine; PCP Internal Medicine
DX: R10.9 Unspecified abdominal pain (principal); J90 Pleural effusion, not elsewhere classified; I25.10 Atherosclerotic heart disease of native coronary artery without angina pectoris; E11.51 Type 2 diabetes mellitus with diabetic peripheral angiopathy without gangrene; I50.30 Unspecified diastolic (congestive) heart failure; I11.0 Hypertensive heart disease with heart failure; H40.9 Unspecified glaucoma; E78.5 Hyperlipidemia, unspecified; E03.9 Hypothyroidism, unspecified; I25.2 Old myocardial infarction; Z86.73 Personal history of transient ischemic attack (TIA), and cerebral infarction without residual deficits; Z87.442 Personal history of urinary calculi; Z79.4 Long term (current) use of insulin; Z98.42 Cataract extraction status, left eye; Z98.41 Cataract extraction status, right eye; Z95.5 Presence of coronary angioplasty implant and graft; N20.2 Calculus of kidney with calculus of ureter; I70.0 Atherosclerosis of aorta; K55.1 Chronic vascular disorders of intestine; I70.1 Atherosclerosis of renal artery; I70.202 Unspecified atherosclerosis of native arteries of extremities, left leg; I70.8 Atherosclerosis of other arteries
CPT/HCPCS: 36415; 51701; 74176; 80053; 81001; 83690; 85025; 96360; 99284; A9270; J7030

== ENCOUNTER 2020-10-02 12:11 | Outpatient (RCR) | payer MEDICARE, OTHER, SELFPAY ==
[2020-10-02 13:16] VITALS: BMI 30.6
--- NOTE | 2020-10-02 16:37 | P.PNWOUND_ITS ---
Wound Care Note Date/Time: 10/02/20 16:37 Patient is an 80-year-old woman who comes to the wound clinic with her . She has had numerous blackened eschars on her left foot for about 3 months. Despite antibiotic therapy and local wound care, these have improved minimally if at all. She is seen now in the wound clinic for further evaluation. She is an insulin-dependent diabetic and also takes Plavix and aspirin. She reports that she had a carotid endarterectomy years ago at [facility]. she also had a coronary stent placed in 2004. She suffered a subcapital fracture of the left femoral neck in November of 2019. Assessment and Plan Assessment and plan (1) Gangrene of left foot: Code(s): I96 - Gangrene, not elsewhere classified Status: Chronic Assessment and Plan: extensive gangrenous change to left foot. I am not sure the left foot can be salvaged. There is also significant vascular impairment. I am also concerned regarding iliofemoral arterial emboli causing the gangrenous changes to her foot. Recommend patient be evaluated by vascular surgeon. We will arrange for her to be seen with the vascular surgery group and Tessa either , Dr. Mckeon, or Dr. Ponce within the next couple of weeks. They will do their own noninvasive vascular testing. For now we will dress the wound with Dakin solution and have recommended that the foot be wrapped with Stefano wrap rather than tape. I do not feel ongoing infection is really a significant problem. Explained to that at this point, I am not optimistic the foot can be saved. (2) Peripheral vascular disease due to secondary diabetes mellitus: Code(s): E13.51 - Other specified diabetes mellitus with diabetic peripheral angiopathy without gangrene Status: Chronic Assessment and Plan: Please see above. Feel for with vascular workup needs to be done for possible revascularization and evaluation for arterial emboli. (3) DM2 (diabetes mellitus, type 2): Qualifiers: Diabetes mellitus exterminator termite insulin use: with exterminator termite use Diabetes mellitus complication status: with neurologic complications Diabetes mellitus complication detail: with other neurological complication Qualified Code(s): E11.49 - Type 2 diabetes mellitus with other diabetic neurological complication; Z79.4 - assisted (current) use of insulin Code(s): E11.9 - Type 2 diabetes mellitus without complications Status: Chronic (4) Coronary artery disease: Code(s): I25.10 - Atherosclerotic heart disease of [place] coronary artery without angina pectoris Status: Chronic (5) Antiplatelet or antithrombotic long-term use: Code(s): Z79.02 - assisted (current) use of antithrombotics/antiplatelets Status: Chronic Review of Systems Review of Systems: All systems reviewed & are unremarkable except as noted in HPI and below Constitutional: Constitutional: Denies chills and Denies fever(s) Exam Cardio: Peripheral pulses: popliteal pulses not present, posterior tibial pulses not present and dorsalis pedis pulses not present Other: pulse Doppler shows biphasic posterior tibial and dorsalis pedis signals Extrem: Right lower extremity: normal to inspection ( No ischemic changes to right foot at all) Left lower extremity: foot ( 2nd toe mummified, all toes have some evidence of ischemia, dry gangrene) Details: other ( plantar surface of the foot-large blackened eschar)
== END 2020-12-24 09:05 | disposition home or self-care (01) ==
LOC: ANHWOC 12:11
PROVIDERS: PCP Internal Medicine; Visit Provider Surgery
DX: I83.009 Varicose veins of unspecified lower extremity with ulcer of unspecified site (principal); L97.909 Non-pressure chronic ulcer of unspecified part of unspecified lower leg with unspecified severity
CPT/HCPCS: 99213; A9270; G0463

== ENCOUNTER 2020-11-18 14:48 | Inpatient (IN) | payer MEDICARE, OTHER, SELFPAY ==
[2020-11-18] VITALS (13 sets, daily range): BP systolic 94–132; BP diastolic 28–107; PULSE 83–102; RESP 17–23; TEMP 36.1–37.2; O2SAT 88–100; BMI 32.1
--- NOTE | ~2020-11-18 | XR_ITS ---
EXAMINATION: XR fl Dobhoff insert/rad w img DATE: 11/24/2020 10:23 INDICATION: Nasoenteric tube placement. TECHNIQUE: I placed a nasoenteric tube under fluoroscopic guidance. The total number of images was 2. Fluoroscopy exposure time was 0.9 minutes. COMPARISON: None. FINDINGS: The nasoenteric tube tip is in the stomach. IMPRESSION: 1. Fluoroscopy guided nasoenteric tube placement with tip in the stomach. Reviewed, dictated and finalized at location A.
--- NOTE | ~2020-11-18 | XR_ITS ---
EXAMINATION: XR barium swallow modified DATE: 11/19/2020 12:01 INDICATION: Dysphagia TECHNIQUE: Modified barium esophagram was performed by myself to administered fluoroscopy, in conjun ction with speech pathologist who administered barium in varying consistencies as per speech patholog ist documentation. This was recorded on tape. A single fluoroscopic spot image was recorded. The DAP for this procedure was 1.047 Gycm2. Fluoroscopy exposure time was 2.0 minutes. FINDINGS: Oral stage: Significantly delayed oral transit. Pharyngeal phase: Adequate function. Laryngeal penetration: Present. Aspiration: Not observed but expected. Laryngeal sensitivity: Absent. IMPRESSION: Abnormal modified barium swallow Please refer to speech pathologist findings and specific feeding recommendations. Reviewed, dictated and finalized at location A.
--- NOTE | ~2020-11-18 | XR_ITS ---
EXAMINATION: XR abdomen obstructive series DATE: 11/20/2020 10:20 INDICATION: Abdominal pain. Colitis. TECHNIQUE: Upright and supine views of the abdomen on 3 radiographs were obtained. COMPARISON: CT abdomen and pelvis 11/18/2020 FINDINGS: There is a moderate volume of stool in the colon. The distal transverse colon and descendin g colon are featureless with loss of the normal haustra, consistent with colitis. No free intraperito emmanuel gas. There is a small left pleural effusion. There are airspace opacities at left lung base. The re is a central line tip in superior vena cava. There are pins in proximal left femur. IMPRESSION: 1. Featureless distal transverse colon and descending colon, consistent with colitis. 2. Small left pleural effusion. 3. Airspace opacities at left lung base, consistent with atelectasis or less likely pneumonia. Reviewed, dictated and finalized at location A. IMPRESSION: 1. Featureless distal transverse colon and descending colon, consistent with co litis. 2. Small left pleural effusion. 3. Airspace opacities at left lung base, consistent with atelectasis or less li tristen pneumonia.
--- NOTE | ~2020-11-18 | CT_ITS ---
EXAMINATION: CT brain wo con EXAM DATE: 11/20/2020 11:08 INDICATION: Confusion. TECHNIQUE: Spiral CT of the head was performed without contrast. Axial, coronal and sagittal images were reviewed. The dose-length product (DLP) for this examination was 605.33 mGy-cm. The exposure w as tailored according to patient size, and iterative reconstruction (ASIR) was used as additional dos e reduction technique. Comparison is made to prior examination from 11/22/19. FINDINGS: There is large old right parieto-occipital lobe infarction unchanged. Mild microangiopathy and moderate cerebral atrophy. There is no acute intraparenchymal hemorrhage. No evidence of intrapa renchymal brain mass lesion. No evidence of acute infarction. There is no mass effect or midline sh ift. The ventricles are normal in size. There are no extra-axial collections. There are no acute c alvarial fractures. Patient has had bilateral ocular lens surgery. Soft tissue is unremarkable. The visualized sinuses and mastoid air cells are well aerated. IMPRESSION: 1. No acute intracranial findings. 2. Large old right parietal occipital lobe infarction. Reviewed, dictated and finalized at location B.
--- NOTE | ~2020-11-18 | XR_ITS ---
EXAMINATION: XR lumbar spine 2-3V EXAM DATE: 11/18/2020 16:11 INDICATION: back pain neck pain. TECHNIQUE: Lumber spine frontal, lateral, lateral L5-S1 projections for interpretation. Comparison is made to prior examination from 02/27/2016. FINDINGS: There are no acute fractures identified. Moderate to severe disc disease L3-4, L4-5 and L5 -S1. Moderate at L2-3. Vertebral body heights are maintained. Probably moderate facet arthropathy. Sa ana, sacroiliac joints, sacral arcuate lines are intact. IMPRESSION: 1. Moderate to severe lower lumbar disc disease. Reviewed, dictated and finalized at location A.
--- NOTE | ~2020-11-18 | XR_ITS ---
EXAMINATION: XR thoracic spine 2V EXAM DATE: 11/18/2020 16:11 INDICATION: back pain . TECHNIQUE: Frontal and lateral projections of the thoracic spine as well as lateral swimmers projecti on of the upper thoracic spine for interpretation. There is no prior study for comparison. FINDINGS: Moderate to severe disc disease at T9-10, mild to moderate at the other mid and lower thora cic levels. There is aortic arteriosclerosis. Dense mitral annular calcifications. There are no bony erosions identified. There are no acute fractures identified. IMPRESSION: 1. T9--10 moderate to severe disc disease. 2. No acute thoracic findings. Reviewed, dictated and finalized at location A.
--- NOTE | ~2020-11-18 | XR_ITS ---
EXAMINATION: XR fl Dobhoff insert/rad w img DATE: 11/22/2020 13:01 INDICATION: Dysphagia. TECHNIQUE: I placed a nasoenteric tube under fluoroscopic guidance. Fluoroscopy exposure time was 2.7 minutes. The total number of images was 1. COMPARISON: None. FINDINGS: The nasoenteric tube tip is in the stomach. IMPRESSION: 1. Fluoroscopy guided nasoenteric tube placement with tip in the stomach. Reviewed, dictated and finalized at location A.
--- NOTE | ~2020-11-18 | XR_ITS ---
EXAMINATION: XR chest 2V EXAM DATE: 11/18/2020 16:11 INDICATION: Altered level of consciousness, back pain. Shortness of breath. TECHNIQUE: Frontal and lateral projections of the chest obtained and reviewed. Comparison is made to prior examination from 11/24/2019. FINDINGS: Some left costophrenic pleural blunting, possible small left pleural effusion. No confluent consolidation. There is a right-sided portacatheter, intact line. Mild cardiomegaly and dense mitral annular calcifications. There is aortic arteriosclerosis. No pneumothorax or pleural effusion suspec clay. Left-sided neck surgical clips. There are mild bony degenerative changes. IMPRESSION: 1. Cardiomegaly, possible small left pleural effusion. Reviewed, dictated and finalized at location A.
--- NOTE | ~2020-11-18 | XR_ITS ---
EXAMINATION: XR barium swallow modified DATE: 11/21/2020 13:20 INDICATION: Dysphagia. TECHNIQUE: The patient was given barium-containing material of multiple consistencies to swallow by t melissa speech pathologist while I performed fluoroscopy. Dose-area product was 1.7 Gy-cm2. 3.2 minutes fluoroscopy time FINDINGS: Oral Stage: Reduced lingual movement Pharyngeal Phase: Reduced laryngeal elevation Reduced tongue base retraction Reduced pharyngeal squeeze Moderate vallecular and mild piriform sinus residue Pharyngeal wall residue Laryngeal penetration with all consistencies Cervical/Esophageal Stage: Within functional limits IMPRESSION: Modified esophagram findings as above. Please refer to the speech [facility]. Reviewed, dictated and finalized at Location A. Reviewed, dictated and finalized at location A. IMPRESSION: Modified esophagram findings as above. Please refer to the speech t herapy report for specific recommendations.
--- NOTE | ~2020-11-18 | CT_ITS ---
EXAMINATION: CT abdomen pelvis wo con EXAM DATE: 11/18/2020 15:52 INDICATION: Unable to lay flat, abdominal pain. TECHNIQUE: Spiral CT of the abdomen and pelvis was performed without contrast. Axial, coronal and s agittal images of the abdomen and pelvis were reviewed. The dose-length product (DLP) for this exami nation was 1247.37 mGy-cm. The exposure was tailored according to patient size (auto mA exposure con trol), and iterative reconstruction (ASIR) was used as additional dose reduction technique. Compariso n is made to prior examination from 03/29/2020. FINDINGS: There is hepatic steatosis without suspicious focal lesion identified. Spleen, adrenal glan ds, pancreas are unremarkable. Gallbladder is unremarkable. No biliary obstruction. Multiple nonob structing stones in the dependent aspect of the right renal pelvis. No hydronephrosis or ureteral sto cele. Bilateral renal cortical scarring. The uterus is not identified and has likely been surgically r esected. The bladder is unremarkable. There is no retroperitoneal or pelvic lymphadenopathy. Ther e is extensive scattered arterial sclerotic disease. The appendix is not positively visualized. There is no pericecal inflammatory change to suggest appe ndicitis. The stomach and small bowel are unremarkable. There is moderate amount of colonic stool. There is mild thickening of the splenic flexure, descending and sigmoid colonic wall, mild colitis. No pneumatosis. No free intraperitoneal gas. Small to moderate right, small left pleural effusion with adjacent multisegmental right lower lobe, subsegmental left lower lobe atelectasis. There are no osteoblastic or osteolytic lesions identified. IMPRESSION: 1. Colitis from the splenic flexure through the sigmoid colon. 2. Multiple nonobstructing right renal pelvic stones. 3. Small to moderate right, small left pleural effusions with adjacent atelectasis. Reviewed, dictated and finalized at location A. IMPRESSION: 1. Colitis from the splenic flexure through the sigmoid colon. 2. Multiple nonobstructing right renal pelvic stones. 3. Small to moderate right, small left pleural effusions with adjacent atelect asis.
--- NOTE | 2020-11-18 14:53 | PC.NURSE ---
Patient placed on oxygen at 2 liters at this time.
[2020-11-18] MEDS: SODIUM CHLORIDE 0.9% IV 1,000 ML 999 ML (14:58)
--- NOTE | 2020-11-18 15:00 | PC.NURSE ---
Patient continues to keep repeating help me . When asked what she needs, patient states: [facility]. She continues to be able to answer questions such as her name, birthday, month, and year but continues to have difficulty recalling that she is at [facility]. Patient reoriented at this time and provided with call light and instructions for it's use. She does tell me she understands how to use the call light. [place] provided for comfort. Patient's significant other is at the patient's bedside.
[2020-11-18 15:02] LABS: Hematocrit 32.3 % (37.0-47.0); Hemoglobin 9.9 g/dL (12.0-15.0); Mean Corpuscular HGB Conc 30.7 g/dl (32-36); Mean Corpuscular Hemoglobin 27.3 pg (26-34); Mean Platelet Volume 10.2 fl (7.4-10.4); Platelet Count Result 341 k/mm3 (150-375); Red Blood Count 3.63 M/mm3 (4.2-5.4); Red Cell Distribution Width 17.7 % (11.5-14.5)
--- NOTE | 2020-11-18 15:04 | PC.NURSE ---
Patient's family member reports that this patient has been complaining of pain to her bottom prior to having her BKA surgery. He states that she was sitting in wheelchair quite a bit at that time and that he did attempt to pad her seat to help with pain. He also states that this patient has not been eating for the last three days. He states she was discharged from [facility] and transferred to the detention on thursday of this week (11/14). He is unable to tell me exactly when her surgery was performed but that it was done at [facility].
[2020-11-18 15:07] LABS: Add Urine Microscopic? YES; Appearance Urine Clear (Clear); Bilirubin Urine Negative (Negative); Blood Urine Negative (Negative); Color Urine Amber (Yellow); Glucose Urine UA Negative (Negative); Ketones Urine Negative (Negative); Leukocyte Esterase Ur Negative LEU/UL (Negative); Nitrate Urine Negative (Negative); Protein Urine Negative (Negative); Specific Grav Ur 1.015 (1.001-1.035); Urobilinogen Urine Negative mg/dL (<2.0)
[2020-11-18 15:12] LABS: INR 1.1; Prothrombin Time 14.4 Seconds (11.1-14.7)
--- NOTE | 2020-11-18 15:12 | ECG_ITS ---
Measurements Intervals [place] Rate: 89 P: 34 TN: 160 QRS: -23 QRSD: 144 T: 167 QT: 384 QTc: 469 Interpretive Statements SINUS RHYTHM LEFT BUNDLE BRANCH BLOCK ABNORMAL ECG Electronically Signed On 11-18-2020 21:45:11 CDT by Manuel Villa D.O.
[2020-11-18 15:14] LABS: Band Neutrophils Percent 10 % (0-6); Lymphocytes Absolute Manual 1.04 K/mm3 (1.1-4.5); Lymphocytes Percent Manual 4 % (18-44); Metamyelocytes Percent 1 %; Monocytes Percent Manual 5 % (3-9); Neutrophils Percent Manual 80 % (46-73); Ovalocytes 1+ (NORMAL); Platelet Estimate Adequate (Adequate); Total Cells Counted 100
[2020-11-18 15:15] LABS: Stomatocytes 1+ (NORMAL)
[2020-11-18 15:16] LABS: Alanine Aminotransferase 24 U/L (4-35); Albumin Level 2.6 g/dL (3.5-5.1); Alkaline Phosphatase 248 U/L (38-126); Anion Gap 10 mmol/L (8-16); Aspartate Amino Transferase 66 U/L (14-36); Bilirubin,Total 0.7 mg/dL (0.2-1.3); Blood Urea Nitrogen 49 mg/dL (7-17); Calcium 8.4 mg/dL (8.4-10.2); Carbon Dioxide 26 mmol/L (22-30); Chloride 95 mmol/L (98-107); Estimated CRCL calculation 19 ml/min; Estimated Glomerular Filt Rate 24; Glucose 395 mg/dL (65-105); Lipase 13 U/L (23-300); Sodium 131 mmol/L (137-145)
[2020-11-18 15:26] LABS: Troponin I 0.076 ng/mL (0.000-0.034)
[2020-11-18 15:43] LABS: CRP > 45.0 mg/dL (<1.0)
--- NOTE | 2020-11-18 15:56 | ED.GENADULT ---
HPI - General Adult General Chief complaint: Unspecified Stated complaint: possible uti Time Seen by Provider: 11/18/20 15:11 Source: patient History of Present Illness HPI narrative: Patient is a 80 y/o female complaining of poor appetite and not eating much for 1 week. She states that she is at a rehab facility following left BKA about 1 week ago at [facility]. She also complains of generalized abdominal pain. She rates her pain as 5/10. There is no alleviating or exacerbating factor. She is not sure how long she has had this pain. She also complains of back pain, which has been there even before her recent surgery. She is poor historian. Related Data Home Medications Medication Instructions Recorded Confirmed Lantus U-100 Insulin 24 unit SUBCUT QPM 11/22/19 10/02/20 amlodipine 5 mg PO DAILY 11/22/19 10/02/20 aspirin [Aspirin Low Dose] 81 mg PO DAILY 11/22/19 10/02/20 atorvastatin 40 mg PO HS 11/22/19 10/02/20 carvedilol 3.125 mg PO BID 11/22/19 10/02/20 clopidogrel 75 mg PO DAILY 11/22/19 10/02/20 dorzolamide 1 drp OPHTHALMIC (EYE) BID 11/22/19 10/02/20 duloxetine 60 mg PO DAILY 11/22/19 10/02/20 furosemide 40 mg PO DAILY 11/22/19 10/02/20 insulin lispro [Humalog U-100 1 sliding scale dose SUBCUT 11/22/19 10/02/20 Insulin] USEASDIRECTD latanoprost 1 drp OPHTHALMIC (EYE) QPM 11/22/19 10/02/20 levothyroxine 100 mcg PO DAILY 11/22/19 10/02/20 Allergies Allergy/AdvReac Type Severity Reaction Status Date / Time prednisone AdvReac Mild Other Verified 03/29/20 18:24 simvastatin AdvReac Unknown Muscle Verified 03/29/20 18:24 Spasms Review of Systems Constitutional: Constitutional: Denies chills, Denies fever(s), Denies headache(s), Reports lethargy and Denies weakness Eyes: Eyes: Denies blurry vision ENT: Denies headache(s) and Denies neck pain Cardiovascular: Cardiovascular: Denies chest pain and Reports dyspnea Respiratory: Respiratory: Denies cough and Reports dyspnea Gastrointestinal: Gastrointestinal: Reports abdominal pain, Denies diarrhea, Denies nausea and Denies vomiting Genitourinary: Genitourinary: Denies hematuria and Denies dysuria Musculoskeletal: Musculoskeletal: Reports back pain and Denies neck pain Neurologic: Denies headache(s) and Denies weakness [facility] Past Medical History Medical History (Updated 11/18/20 @ 18:28 by Bel Ridley MD) CAD (coronary artery disease) History non STEMI and stent placement 2004 Congestive heart failure Diastolic CVA (cerebral vascular accident) DM2 (diabetes mellitus, type 2) Insulin-dependent Glaucoma HTN (hypertension), malignant Hyperlipidemia Hypertension Hypothyroidism Kidney stone Myocardial infarction Peripheral artery disease Port-A-Cath in place Surgical History Surgical History Cataract extraction status Bilateral H/O carotid endarterectomy H/O heart artery stent 2004 History of appendectomy S/P ERCP To remove gallbladder stones Family History Family History Daughter Diabetes mellitus Son Diabetes mellitus Mother Cerebrovascular accident Heart disease Kidney disease Sibling Heart disease Sibling Carcinoma of colon Social History Social History Social History: The patient lives at home with her of many years. 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 She has 5 children she desires to be a full code. Her and oldest daughter or durable power county attorney for healthcare. Lifelong nonsmoker does not drink or use illicit drugs. Smoking status: Never smoker Alcohol intake: never Substance use: never Substance use type: does not use Gender identity (if verbalized by the patient): Female Spiritual care concerns: No Exam Const: General: no acute distress and ill appearing Orientation/c
[2020-11-18] MEDS: MORPHINE SULFATE (*CRX) 4 MG/ML INJ IV PUSH (17:49)
[2020-11-18 18:00] LABS: Reflex Lactic Acid Yes or No Add Lactic
--- NOTE | 2020-11-18 20:03 | ADMGEN ---
This patient, Daniella Dietrich, was admitted to Medical Room 342-01. Patient/family oriented to hospital policies and general routines including ID bracelet, bed and alarms, visiting hours, pain management, procedures, bathroom and other care routines, personal items, smoking policy, room service/diet, and visiting hours. Information on how to activate the Rapid Response Team has been discussed. Patient/Family are encouraged to report perceived risks to care and to ask questions if they do not understand what they are told or what they should do.
[2020-11-18] MEDS: metroNIDAZOLE 500 MG/ISO 100ML 500 MG/100 ML BAG 100 MG IVPB (20:12)
[2020-11-18] MEDS: SODIUM CHLORIDE 0.9% IV 1,000 ML 125 ML IV CONT (20:13)
[2020-11-18 20:50] LABS: Lactic Acid 2.4 mmol/L (0.7-2.1)
--- NOTE | 2020-11-18 20:54 | PM.IMHP ---
H&P: HPI History of Present Illness Date/Time: 11/18/20 20:54 Chief Complaint: Abdominal pain Narrative: Patient is a 80-year-old female who presents from [facility] where she has been since past week for rehabilitation post surgery with her left BKA for her chronic left foot ulcer /infection. She was brought in for poor appetite altered mental status and not eating much for the past week. Family was concerned whether she has a possible UTI. Much of the history is taken from the medical records as patient is slightly confused and could not elaborate her symptoms. She was at [facility] for left BKA and was discharged a week or 2 ago. She also reports generalized abdominal pain and rated about 5 /10 in intensity when asked where the pain is she points to all over her daily. No aggravating or alleviating factor. She thinks he is in [facility]. She she later tells me she is in [facility]. Upon evaluation in the ER she was noted to have leukocytosis lactic acidosis and Fabricio along with CT evidence colitis. She is admitted for further evaluation Review of Systems Review of Systems: Narrative: - CONSTITUTIONAL: Denies weight loss, fever and chills. - HEENT: Denies changes in vision and hearing - RESPIRATORY: Denies SOB and cough. - CV: Denies palpitations and CP. - GI:Reports abdominal pain, denies nausea, vomiting and diarrhea. - : Denies dysuria and urinary frequency. - MSK: Denies myalgia and joint pain. - SKIN: Denies rash and pruritus. - NEUROLOGICAL: Denies headache and syncope. - PSYCHIATRIC: Denies recent changes in mood. Denies anxiety and depression. All systems reviewed & are unremarkable except as noted in HPI and below Constitutional: Constitutional: Reports fatigue and Reports weakness Neurologic: Reports weakness Endocrine: Endocrine: Reports fatigue [facility] Past Medical History Medical History (Updated 11/18/20 @ 21:56 by Andrés Mccarty MD) CAD (coronary artery disease) History non STEMI and stent placement 2004 Congestive heart failure Diastolic CVA (cerebral vascular accident) DM2 (diabetes mellitus, type 2) Insulin-dependent Glaucoma HTN (hypertension), malignant Hyperlipidemia Hypertension Hypothyroidism Kidney stone Myocardial infarction Peripheral artery disease Port-A-Cath in place Surgical History Surgical History Cataract extraction status Bilateral H/O carotid endarterectomy H/O heart artery stent 2004 History of appendectomy S/P ERCP To remove gallbladder stones Family History Family History Daughter Diabetes mellitus Son Diabetes mellitus Mother Cerebrovascular accident Heart disease Kidney disease Sibling Heart disease Sibling Carcinoma of colon Social History Social History Social History: The patient lives at home with her of many years. 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 She has 5 children she desires to be a full code. Her and oldest daughter or durable power employment law attorney for healthcare. Lifelong nonsmoker does not drink or use illicit drugs. Smoking status: Never smoker Alcohol intake: never Substance use: never Substance use type: does not use Gender identity (if verbalized by the patient): Female Spiritual care concerns: No Meds Home Medications and Allergies Home Medications Medication Instructions Recorded Confirmed Type Lantus U-100 Insulin 10 unit SUBCUT QPM 11/22/19 11/18/20 History amlodipine 10 mg PO DAILY 11/22/19 11/18/20 History aspirin [Aspirin Low Dose] 81 mg PO DAILY 11/22/19 11/18/20 History atorvastatin 40 mg PO HS 11/22/19 11/18/20 History carvedilol 3.125 mg PO BID 11/22/19 11/18/20 History dorzolamide 1 drp OPHTHALMIC (EYE) BID 11/22/19
[2020-11-18] MEDS: CIPROFLOXACIN 200 MG/D5W 100ML 100 ML 100 MG IVPB (21:44)
[2020-11-18 21:51] LABS: Glucose Point of Care 373 mg/dl (65-105)
[2020-11-18] MEDS: INSULIN GLARGINE (*BKC) 100 UNITS/ML 10 UNITS SUB-Q (22:24)
[2020-11-18] MEDS: carvediloL 3.125 MG TABLET PO (22:28)
[2020-11-18] MEDS: LATANOPROST 0.005% OP SOLN 2.5 ML BTL 1 DROP EACH EYE (22:28)
[2020-11-18] MEDS: ATORVASTATIN 40 MG TABLET PO (22:28)
[2020-11-18] MEDS: DORZOLAMIDE HCL 2% OPHTH DROPS 1 DROP EACH EYE (22:28)
[2020-11-19] VITALS (7 sets, daily range): BP systolic 98–137; BP diastolic 38–81; PULSE 71–79; RESP 14–20; TEMP 35.7–36.6; O2SAT 94–100
[2020-11-19] MEDS: metroNIDAZOLE 500 MG/ISO 100ML 500 MG/100 ML BAG 100 MG IVPB ×3 (04:34→20:01)
[2020-11-19 05:32] LABS: Hematocrit 26.9 % (37.0-47.0); Hemoglobin 8.5 g/dL (12.0-15.0); Mean Corpuscular HGB Conc 31.6 g/dl (32-36); Mean Corpuscular Hemoglobin 27.9 pg (26-34); Mean Corpuscular Volume 88.2 fl (80-100); Mean Platelet Volume 10.2 fl (7.4-10.4); Platelet Count Result 309 k/mm3 (150-375); Red Blood Count 3.05 M/mm3 (4.2-5.4); Red Cell Distribution Width 17.6 % (11.5-14.5); White Blood Count 23.9 K/mm3 (4.5-10.0)
[2020-11-19 05:51] LABS: Anion Gap 8 mmol/L (8-16); Blood Urea Nitrogen 53 mg/dL (7-17); Calcium 7.7 mg/dL (8.4-10.2); Carbon Dioxide 23 mmol/L (22-30); Chloride 101 mmol/L (98-107); Estimated CRCL calculation 21 ml/min; Estimated Glomerular Filt Rate 27; Glucose 373 mg/dL (65-105); Potassium 4.5 mmol/L (3.4-5.0); Sodium 132 mmol/L (137-145)
[2020-11-19 06:06] LABS: Band Neutrophils Percent 7 % (0-6); Lymphocytes Absolute Manual 0.47 K/mm3 (1.1-4.5); Monocytes Absolute Manual 1.43 K/mm3 (0.1-0.90); Monocytes Percent Manual 6 % (3-9); Neutrophils Absolute Manual 21.98 K/mm3 (1.7-7.2); Neutrophils Percent Manual 85 % (46-73); Platelet Estimate Adequate (Adequate); Total Cells Counted 100
[2020-11-19 06:07] LABS: Burr Cells 1+ (NORMAL); Ovalocytes 1+ (NORMAL)
[2020-11-19] MEDS: SODIUM CHLORIDE 0.9% IV 1,000 ML 125 ML IV CONT (06:37)
[2020-11-19 07:40] LABS: Glucose Point of Care 385 mg/dl (65-105)
[2020-11-19] MEDS: INSULIN ASPART (*BKC) 100 UNITS/ML SUB-Q ×3 (07:49→18:17)
[2020-11-19] MEDS: CIPROFLOXACIN 200 MG/D5W 100ML 100 ML 100 MG IVPB ×2 (07:50→21:04)
[2020-11-19] MEDS: DORZOLAMIDE HCL 2% OPHTH DROPS 1 DROP EACH EYE ×2 (07:53→16:48)
[2020-11-19] MEDS: MUPIROCIN 2% OINT 22 GM TUBE 1 APPLIC TOPICAL (07:53)
[2020-11-19] MEDS: HEPARIN SODIUM 5,000 UNITS/ML VIAL 5000 UNITS SUB-Q ×2 (07:55→20:01)
[2020-11-19 08:42] LABS: Troponin I 0.071 ng/mL (0.000-0.034)
[2020-11-19] MEDS: ASPIRIN 81 MG ENTERIC TABLET PO (09:39)
[2020-11-19] MEDS: THERAPEUTIC MULTIVITAMINS/MINERALS TAB (*BKC) 1 TABLET PO (09:40)
[2020-11-19] MEDS: DULoxetine HCL 60 MG CAPSULE.DR PO (09:40)
[2020-11-19] MEDS: carvediloL 3.125 MG TABLET PO (09:40)
[2020-11-19] MEDS: ERGOCALCIFEROL 50,000 UNIT CAPSULE 50000 UNITS PO (09:40)
--- NOTE | 2020-11-19 10:20 | PCSTNOTE ---
Please refer to the Bedside Swallow Evaluation in the EMR. Please note, silent aspiration cannot be ruled out at bedside.
--- NOTE | 2020-11-19 11:56 | PM.IMPN ---
Progress Note: A&P Assessment and Plan (1) Sepsis: Qualifiers: Sepsis acute organ dysfunction status: unspecified Sepsis type: sepsis due to unspecified organism Qualified Code(s): A41.9 - Sepsis, unspecified organism Code(s): A41.9 - Sepsis, unspecified organism Status: Acute Assessment and Plan: Present on admission with leukocytosis, bandemia and lactic acidosis. Suspect also her acute kidney injury and hyperglycemia related to the sepsis picture. Sepsis related to colitis. Blood cultures collected and are pending. Continue current IV antibiotics for colitis. (2) Colitis: Code(s): K52.9 - Noninfective gastroenteritis and colitis, unspecified Status: Acute Assessment and Plan: Patient presents with evidence of sepsis. CT of the abdomen and pelvis without contrast showing colitis from the splenic flexure through the sigmoid colon. She is not having diarrhea. She has been started on Cipro and Flagyl IV. Consider ischemia given her underlying history of CAD, PAD and CHF. GI consult. Continue antibiotics. Monitor white count. (3) Dysphagia: Code(s): R13.10 - Dysphagia, unspecified Status: Acute Assessment and Plan: Patient was noted to cough with thin liquids. She seemed to do okay with thickened liquids but modified barium swallow was recommended. Patient did undergo modified today showing she had penetration with thin liquids that seemed to worsen with pudding. NPO was recommended. Therapy to work the patient. Hold oral medications. (4) Anemia: Code(s): D64.9 - Anemia, unspecified Status: Acute Assessment and Plan: Patient had a hemoglobin of 9.9 on admission which is far lower than she has had the past. Her baseline hemoglobin mostly runs 11-13 range. Will check iron studies and B12 level. Stool guaiac probably will be positive due to the colitis. Monitor H&H closely and transfuse as necessary. (5) Back pain: Code(s): M54.9 - Dorsalgia, unspecified Status: Acute Assessment and Plan: Patient still complains of back pain. Lumbar x-ray shows moderate to severe lower lumbar disc disease. Thoracic x-ray also showing T9-T10 disc disease. Back pain probably chronic. UA was negative making infection less likely. Back pain could be related to her colitis as well. Will continue to follow. Treat symptomatically. (6) KALEB (acute kidney injury): Code(s): N17.9 - Acute kidney failure, unspecified Status: Acute Assessment and Plan: Creatinine 2.0 on admission. Baseline creatinine last year was normal at 0.9. With IV fluids, creatinine has trended down to 1.8. Continue IV fluids. Monitor fluid status closely. Lasix on hold. (7) Elevated troponin: Code(s): R77.8 - Other specified abnormalities of plasma proteins Status: Acute Assessment and Plan: Trop elevated to 0.076. EKG showing chronic LBBB. No CP. Suspect elevated Troponin related to KALEB and sepsis. Monitor (8) Hypertension: Code(s): I10 - Essential (primary) hypertension Status: Acute Assessment and Plan: Patient's blood pressure was reviewed on 11/19 Blood pressure remains well controlled and soft sometimes. Will hold home medications. (9) Peripheral vascular disease due to secondary diabetes mellitus: Code(s): E13.51 - Other specified diabetes mellitus with diabetic peripheral angiopathy without gangrene Status: Chronic Assessment and Plan: Patient with peripheral arterial disease status post left BKA. Will resume therapy. (10) Coronary artery disease: Code(s): I25.10 - Atherosclerotic heart disease of [place] coronary artery without angina pectoris Status: Chronic Assessment and Plan: AST slightly elevated but only mildly so. Lipitor held due to dysphagia. Will also hold aspirin and Coreg. (11) Hyponatremia:
[2020-11-19 12:19] LABS: Glucose Point of Care 253 mg/dl (65-105)
--- NOTE | 2020-11-19 12:31 | PCSTNOTE ---
Please refer to the Modified Barium Swallow Evaluation in the EMR.
[2020-11-19 13:07] LABS: Base Excess ABG 1.4 mEq/l (+/-2.0); Device NASAL CANNULA; Fractional Inspired Oxygen 28 %; HCO3 ABG 25.6 mEq/l (22.0-26.0); Oxygen Saturation ABG 95.4 % (95.0-100.0); Oxyhemoglobin 93.4 % THb (90.0-100.0); PCO2 ABG 38.6 mmHg (35.0-45.0); PO2 ABG 74.1 mmHg (80.0-100.0); PO2 FiO2 Ratio Arterial Blood 2.65 %; Site Drawn RIGHT BRACHIAL; Total Hemoglobin 9.8 g/dL (12.0-18.0); pH ABG 7.439 (7.350-7.450)
[2020-11-19] MEDS: SODIUM CHLORIDE 0.9% IV 1,000 ML 100 ML IV CONT (16:47)
[2020-11-19 18:15] LABS: Glucose Point of Care 208 mg/dl (65-105)
[2020-11-19] MEDS: INSULIN GLARGINE (*BKC) 100 UNITS/ML 15 UNITS SUB-Q (18:17)
[2020-11-19] MEDS: LATANOPROST 0.005% OP SOLN 2.5 ML BTL 1 DROP EACH EYE (18:18)
[2020-11-19] MEDS: MORPHINE SULFATE (*CRX) 2 MG/ML INJ IV PUSH (21:55)
[2020-11-19 23:10] LABS: Glucose Point of Care 138 mg/dl (65-105)
[2020-11-20] VITALS (8 sets, daily range): BP systolic 118–148; BP diastolic 38–50; PULSE 73–80; RESP 18–20; TEMP 36.1–37.1; O2SAT 93–98
[2020-11-20] MEDS: metroNIDAZOLE 500 MG/ISO 100ML 500 MG/100 ML BAG 100 MG IVPB (04:11)
[2020-11-20] MEDS: SODIUM CHLORIDE 0.9% IV 1,000 ML 125 ML IV CONT (05:16)
[2020-11-20 05:54] LABS: Hematocrit 27.7 % (37.0-47.0); Hemoglobin 8.8 g/dL (12.0-15.0); Mean Corpuscular HGB Conc 31.8 g/dl (32-36); Mean Corpuscular Hemoglobin 27.6 pg (26-34); Mean Corpuscular Volume 86.8 fl (80-100); Mean Platelet Volume 9.9 fl (7.4-10.4); Platelet Count Result 277 k/mm3 (150-375); Red Blood Count 3.19 M/mm3 (4.2-5.4); Red Cell Distribution Width 17.4 % (11.5-14.5); White Blood Count 20.9 K/mm3 (4.5-10.0)
[2020-11-20 05:59] LABS: Alanine Aminotransferase 20 U/L (4-35); Albumin Level 2.1 g/dL (3.5-5.1); Alkaline Phosphatase 198 U/L (38-126); Anion Gap 7 mmol/L (8-16); Aspartate Amino Transferase 52 U/L (14-36); Bilirubin,Total 0.5 mg/dL (0.2-1.3); Blood Urea Nitrogen 59 mg/dL (7-17); Calcium 7.9 mg/dL (8.4-10.2); Carbon Dioxide 24 mmol/L (22-30); Chloride 106 mmol/L (98-107); Estimated CRCL calculation 24 ml/min; Estimated Glomerular Filt Rate 31; Glucose 122 mg/dL (65-105); Magnesium 2.5 mg/dL (1.6-2.3); Phosphorus 3.1 mg/dL (2.5-4.5); Potassium 3.6 mmol/L (3.4-5.0); Sodium 137 mmol/L (137-145)
[2020-11-20] MEDS: LEVOTHYROXINE SODIUM INJ 100 MCG/5 ML VIAL 50 MCG IV PUSH (06:07)
[2020-11-20 06:30] LABS: Band Neutrophils Percent 6 % (0-6); Lymphocytes Absolute Manual 0.41 K/mm3 (1.1-4.5); Lymphocytes Percent Manual 2 % (18-44); Monocytes Absolute Manual 1.25 K/mm3 (0.1-0.90); Monocytes Percent Manual 6 % (3-9); Neutrophils Absolute Manual 19.22 K/mm3 (1.7-7.2); Neutrophils Percent Manual 86 % (46-73); Total Cells Counted 100
[2020-11-20 06:30] LABS: Glucose Point of Care 113 mg/dl (65-105)
[2020-11-20 06:31] LABS: Platelet Estimate Adequate (Adequate)
[2020-11-20 06:32] LABS: Hypochromasia 1+ (NORMAL); Poikilocytosis 1+ (NORMAL)
[2020-11-20 07:06] LABS: Folic Acid 6.9 ng/mL (2.76->20); Vitamin B12 > 1000.0 pg/mL (239-931)
[2020-11-20 07:19] LABS: Iron < 10 ug/dL (37-170)
[2020-11-20 07:28] LABS: Percent Iron Saturation 6 % (20-50)
--- NOTE | 2020-11-20 08:43 | PM.IMPN ---
Progress Note: A&P Assessment and Plan (1) Sepsis: Qualifiers: Sepsis acute organ dysfunction status: unspecified Sepsis type: sepsis due to unspecified organism Qualified Code(s): A41.9 - Sepsis, unspecified organism Code(s): A41.9 - Sepsis, unspecified organism Status: Acute Assessment and Plan: Present on admission with leukocytosis, bandemia and lactic acidosis. Suspect also her acute kidney injury and hyperglycemia related to the sepsis picture. Sepsis related to colitis. WBC slowly improving and bandemia resolved. Blood cultures collected and are NGTD. Will change to Zosyn per antimicrobial stewardship. Spoke with . All questions answered. No hx of dysphagia per . Pt moved to SNF on 11/14. Not eating much at the SNF and she was spitting out food. (2) Colitis: Code(s): K52.9 - Noninfective gastroenteritis and colitis, unspecified Status: Acute Assessment and Plan: Patient presents with evidence of sepsis. CT of the abdomen and pelvis without contrast showing colitis from the splenic flexure through the sigmoid colon. She is not having diarrhea. She has been started on Cipro and Flagyl IV. Consider ischemia given her underlying history of CAD, PAD and CHF. WBC slowly trending down. GI consult. Will change to Zosyn per antimicrobial stewardship. Monitor white count. Add oral Vanco if WBC starts to climb again. Stool cx still pending Obst series showing featureless distal transverse colon and descending colon, consistent with colitis. (3) Dysphagia: Code(s): R13.10 - Dysphagia, unspecified Status: Acute Assessment and Plan: Patient was noted to cough with thin liquids. She seemed to do okay with thickened liquids but modified barium swallow was recommended. Patient did undergo modified / showing she had penetration with thin liquids that seemed to worsen with pudding. NPO was recommended. Speech Therapy to work the patient. Oral medications held. May need NGT for nutrition. 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 (4) Confusion: Code(s): R41.0 - Disorientation, unspecified Status: Acute Assessment and Plan: Patietn more confused today for unclear reasons. Consider new CVA to explain the new onset dysphagia. Could also be related to the current infections. Flagyl can cause an encephalopathy so consider medications. Will adjust abx. Check CT brain. (5) Anemia: Code(s): D64.9 - Anemia, unspecified Status: Acute Assessment and Plan: Patient had a hemoglobin of 9.9 on admission which is far lower than she has had the past. Her baseline hemoglobin mostly runs 11-13 range. Iron studies show iron<10 and TIBC 161 with Ferritin 135 (could be higher then expected due to acute phase reactant). B12 and Folate normal. Stool guaiac probably will be positive due to the colitis. Hgb has dropped in the 8 range and stable. Monitor H&H closely and transfuse as necessary. BCx NGTD. Add IV iron. (6) Back pain: Code(s): M54.9 - Dorsalgia, unspecified Status: Acute Assessment and Plan: Patient was complaining of back pain. Lumbar x-ray shows moderate to severe lower lumbar disc disease. Thoracic x-ray also showing T9-T10 disc disease. CT of the abdomen and pelvis as mentioned above. Back pain probably chronic. UA was negative making infection less likely. Back pain could be related to her colitis as well. Will continue to follow. Treat symptomatically. (7) KALEB (acute kidney injury): Code(s): N17.9 - Acute kidney failure, unspecified Status: Acute Assessment and Plan: Creatinine 2.0 on admission. Baseline creatinine last year was normal at 0.9. With IV fluids, creatinine has trended down to 1.6 now. Change to maintenance IV fluids. Monitor fluid status closely. Lasix on hold but may need int
[2020-11-20 09:11] LABS: Hemoglobin A1C 8.6 % (<5.7)
[2020-11-20] MEDS: CIPROFLOXACIN 200 MG/D5W 100ML 100 ML 100 MG IVPB (09:23)
[2020-11-20] MEDS: MUPIROCIN 2% OINT 22 GM TUBE 1 APPLIC TOPICAL (09:25)
[2020-11-20] MEDS: DORZOLAMIDE HCL 2% OPHTH DROPS 1 DROP EACH EYE ×2 (09:26→17:49)
[2020-11-20] MEDS: HEPARIN SODIUM 5,000 UNITS/ML VIAL 5000 UNITS SUB-Q ×2 (09:31→20:53)
[2020-11-20] MEDS: IRON SUCROSE COMPLEX 100 MG in SODIUM CHLORIDE 0.9% IV 50 ML 220 MG IVPB (10:18)
[2020-11-20] MEDS: KCL 20 MEQ/D5/0.9% SOD CHL 1,000 ML 70 ML IV CONT (10:43)
[2020-11-20 11:58] LABS: Glucose Point of Care 130 mg/dl (65-105)
[2020-11-20 12:46] LABS: Total Triiodothyronine (T3) 0.55 NG/ML (0.97-1.69)
--- NOTE | 2020-11-20 16:01 | PCSTNOTE ---
The patient treatment was not able to be completed on 11/20/20 due to patient confusion and refusal to address any swallowing strengthening exercises. Patient stated she was at [place], says she lives in [place] with her . Unaware of day/month however throughout session kept saying, Help me, but unable to explain what she needed; stated she did not feel well and was dizzy. Will plan to continue treatment per plan of care.
[2020-11-20] MEDS: LATANOPROST 0.005% OP SOLN 2.5 ML BTL 1 DROP EACH EYE (17:48)
[2020-11-20 17:52] LABS: Glucose Point of Care 155 mg/dl (65-105)
[2020-11-20] MEDS: INSULIN GLARGINE (*BKC) 100 UNITS/ML 15 UNITS SUB-Q (18:22)
--- NOTE | 2020-11-20 19:59 | WPDGICN ---
Assessment and Plan Assessment and plan (1) Dysphagia: Code(s): R13.10 - Dysphagia, unspecified Status: Acute Assessment and Plan: We wlll need to follow up on swallowing status. For now, NPO, and clearly not capable of oral bowel prep. (2) Colitis: Code(s): K52.9 - Noninfective gastroenteritis and colitis, unspecified Status: Acute Assessment and Plan: She would benefit from a colonoscopy to R/O ischemic vs. pseudomembranous colitis. Enemas or NG tube instillation are considerations. I'll order stool for C. Dif (3) Leukocytosis: Code(s): D72.829 - Elevated white blood cell count, unspecified Status: Acute Assessment and Plan: Exact etiology not yet clear. 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 She had apparently been eatng very little, and complaining of abdominal pain. She is a poor historian. She reportedly had been spitting out her food. Here she did not perform well on modified Barium swallow, though no mera aspiration was seen. She could not particiate in swallow eval with speech Rx. She has been found to have coliitis on CT, with a dilated left colon. WBC i over 20K. Cultures have been ordered. Review of Systems Review of Systems: All systems reviewed & are unremarkable except as noted in HPI and below PMFSH Past Medical History Medical History CAD (coronary artery disease) History non STEMI and stent placement 2004 Congestive heart failure Diastolic CVA (cerebral vascular accident) DM2 (diabetes mellitus, type 2) Insulin-dependent Glaucoma HTN (hypertension), malignant Hyperlipidemia Hypertension Hypothyroidism Kidney stone Myocardial infarction Peripheral artery disease Port-A-Cath in place Surgical History Surgical History Cataract extraction status Bilateral H/O carotid endarterectomy H/O heart artery stent 2004 History of appendectomy S/P ERCP To remove gallbladder stones Family History Family History Daughter Diabetes mellitus Son Diabetes mellitus Mother Cerebrovascular accident Heart disease Kidney disease Sibling Heart disease Sibling Carcinoma of colon Social History Social History Social History: The patient lives at home with her of many years. 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 She has 5 children she desires to be a full code. 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 Lifelong nonsmoker does not drink or use illicit drugs. Smoking status: Never smoker Alcohol intake: never Substance use: never Substance use type: does not use Gender identity (if verbalized by the patient): Female Spiritual care concerns: No Meds Home Medications and Allergies Home Medications Medication Instructions Recorded Confirmed Type Lantus U-100 Insulin 10 unit SUBCUT QPM 11/22/19 11/18/20 History amlodipine 10 mg PO DAILY 11/22/19 11/18/20 History aspirin [Aspirin Low Dose] 81 mg PO DAILY 11/22/19 11/18/20 History atorvastatin 40 mg PO HS 11/22/19 11/18/20 History carvedilol 3.125 mg PO BID 11/22/19 11/18/20 History dorzolamide 1 drp OPHTHALMIC (EYE) BID 11/22/19 11/18/20 History duloxetine 60 mg PO DAILY 11/22/19 11/18/20 History furosemide 40 mg PO DAILY 11/22/19 11/18/20 History insulin lispro [Humalog U-100 1 sliding scale dose SUBCUT 11/22/19 11/18/20 History Insulin] USEASDIRECTD latanoprost 1 drp OPHTHALMIC (EYE) QPM 11/22/19 11/18/20 History levothyroxine 100 mcg PO DAILY 11/22/19 11/18/20 History losartan [Cozaar] 50 mg PO DAILY #30 tablet 11/26/19
[2020-11-20 23:29] LABS: Glucose Point of Care 147 mg/dl (65-105)
[2020-11-21] VITALS: BP 117/59; PULSE 78; RESP 17; TEMP 36.6; O2SAT 98
[2020-11-21] MEDS: KCL 20 MEQ/D5/0.9% SOD CHL 1,000 ML 70 ML IV CONT ×2 (02:39→19:10)
[2020-11-21 04:22] VITALS: BP 146/44; PULSE 78; RESP 19; TEMP 36.6; O2SAT 95
[2020-11-21 05:12] LABS: Glucose Point of Care 155 mg/dl (65-105)
[2020-11-21] MEDS: LEVOTHYROXINE SODIUM INJ 100 MCG/5 ML VIAL 50 MCG IV PUSH (05:31)
[2020-11-21 06:21] LABS: Hematocrit 32.5 % (37.0-47.0); Hemoglobin 10.1 g/dL (12.0-15.0); Immature Granulocyte Absolute 0.15 K/mm3 (0.00-0.031); Immature Granulocyte Percent A 0.7 % (0-0.5); Lymphocytes Absolute Auto 0.84 K/mm3 (0.9-3.2); Lymphocytes Percent Auto 4.1 % (18.3-44.2); Mean Corpuscular HGB Conc 31.1 g/dl (32-36); Mean Corpuscular Hemoglobin 27.4 pg (26-34); Mean Corpuscular Volume 88.3 fl (80-100); Mean Platelet Volume 10.4 fl (7.4-10.4); Monocytes Absolute Auto 2.3 K/mm3 (0.1-0.6); Monocytes Percent Auto 11.1 % (2.6-8.5); Neutrophils Absolute Auto 17.1 K/mm3 (1.3-6.7); Neutrophils Percent Auto 84.1 % (45.5-73.1); Platelet Count Result 278 k/mm3 (150-375); Red Blood Count 3.68 M/mm3 (4.2-5.4); Red Cell Distribution Width 17.7 % (11.5-14.5); White Blood Count 20.4 K/mm3 (4.5-10.0)
[2020-11-21 06:46] LABS: Albumin Level 2.4 g/dL (3.5-5.1); Anion Gap 10 mmol/L (8-16); Blood Urea Nitrogen 55 mg/dL (7-17); Calcium 8.3 mg/dL (8.4-10.2); Carbon Dioxide 21 mmol/L (22-30); Chloride 109 mmol/L (98-107); Estimated CRCL calculation 29 ml/min; Estimated Glomerular Filt Rate 39; Glucose 163 mg/dL (65-105); Potassium 4.1 mmol/L (3.4-5.0); Sodium 140 mmol/L (137-145)
--- NOTE | 2020-11-21 07:14 | WPDGIPROGNO ---
Progress Note: A&P Assessment and Plan (1) Dysphagia: Code(s): R13.10 - Dysphagia, unspecified Status: Acute Assessment and Plan: We wlll need to follow up on swallowing status. For now, NPO, and clearly not capable of oral bowel prep. (2) Colitis: Code(s): K52.9 - Noninfective gastroenteritis and colitis, unspecified Status: Acute Assessment and Plan: She would benefit from a colonoscopy to R/O ischemic vs. pseudomembranous colitis. I will talk with Dr. Babin this morning. He has been in contact with the . If everyone is agreeable, we could try to prep her for colonoscopy through an NG tube, for the purpose of clarifying what is going on with her colon. Enemas or NG tube instillation are considerations. I have ordered stool for C. Dif (3) Leukocytosis: Code(s): D72.829 - Elevated white blood cell count, unspecified Status: Acute Assessment and Plan: Exact etiology not yet clear. Subjective Date/time seen: 11/21/20 07:14 patient remains on able to give detailed history. She appears comfortable and denies complaints Review of Systems Review of Systems: All systems reviewed & are unremarkable except as noted in HPI and below Exam Const: General: comfortable and confusion Nutritional Appearance: overweight Orientation/consciousness: oriented to person and confusion GI: Inspection: normal to inspection and no visible herniation GI Palp: Yes abdominal tenderness ( left abdomen primarily) Auscultation: normal bowel sounds Skin: General skin exam: dry skin and pallor Neuro: General: oriented to person and confusion Objective Data Vital Signs Vital Signs: Vital Signs - 24 hr 11/20/20 08:00 11/20/20 12:57 11/20/20 14:20 Temperature 37.1 C Pulse Rate 75 Respiratory Rate 20 Blood Pressure 128/48 L Pulse Oximetry 97 96 93 11/20/20 16:20 11/20/20 19:55 11/20/20 20:00 Temperature 36.6 C 36.3 C L Pulse Rate 73 76 Respiratory Rate 20 19 Blood Pressure 118/38 L 148/44 H Pulse Oximetry 95 93 98 11/21/20 00:00 11/21/20 04:22 Temperature 36.6 C 36.6 C Pulse Rate 78 78 Respiratory Rate 17 19 Blood Pressure 117/59 L 146/44 H Pulse Oximetry 98 95 Intake/Output Intake/Output: Intake & Output 11/18/20 11/19/20 11/20/20 11/21/20 23:59 23:59 23:59 23:59 Intake Total 3600 2525 2123 1200 Output Total 600 0 Balance 3000 2525 2123 1200 Meds/Results Medications: Active Medications Generic Name Dose Route Start Last Admin Trade Name Freq PRN Reason Stop Dose Admin Acetaminophen 500 mg 11/18/20 21:02 Acetaminophen 500 Mg Tablet PO Q6H PRN PAIN RATED 1-3 Amlodipine Besylate 10 mg 11/19/20 09:00 Amlodipine Besylate 5 Mg Tablet PO DAILY JEFFRY Aspirin 81 mg 11/19/20 09:00 11/19/20 09:39 Aspirin 81 Mg Enteric Tablet PO 81 mg DAILY JEFFRY Administration Atorvastatin Calcium 40 mg 11/18/20 21:00 11/18/20 22:28 Atorvastatin 40 Mg Tablet PO 40 mg HS JEFFRY Administration Carvedilol 3.125 mg 11/18/20 21:15 11/19/20 09:40 Carvedilol 3.125 Mg Tablet PO 3.125 mg Q12HR JEFFRY Administration Dextrose 12.5 gm 11/18/20 21:58 Dextrose 50% 25 Gm/50 Ml Syringe IV PUSH PRN PRN Hypoglycemia Protocol Dorzolamide HCl 1 drop 11/18/20 21:15 11/20/20 17:49 Dorzolamide Hcl 2% Ophth Drops EACH EYE 1 drop BID JEFFRY Administration Duloxetine HCl 60 mg 11/19/20 09:00 11/19/20 09:40 Duloxetine Hcl 60 Mg Capsule.Dr PO 60 mg DAILY JEFFRY Administration Ergocalciferol 50,000 unit 11/19/20 09:00 11/19/20 09:40 Ergocalciferol 50,000 Unit Capsule PO 50,000 unit Mo@0900 JEFFRY Administration Glucagon 1 mg 11/18/20 21:58 Glucagon For Inj 1 Mg Vial IM PRN PRN Hypoglycemia Protocol Glucose 15 gm 11/18/20 21:58 Glucose Oral Gel 15 Gm Of Glucse In 37.5 Gm Tube PO PRN PRN Hypoglycemia Protocol Heparin Sodium (Por
[2020-11-21 08:00] VITALS: BP 154/49; PULSE 77; RESP 18; TEMP 35.7; O2SAT 92
[2020-11-21] MEDS: IRON SUCROSE COMPLEX 100 MG in SODIUM CHLORIDE 0.9% IV 50 ML 220 MG IVPB (09:50)
[2020-11-21] MEDS: MUPIROCIN 2% OINT 22 GM TUBE 1 APPLIC TOPICAL (09:50)
[2020-11-21] MEDS: HEPARIN SODIUM 5,000 UNITS/ML VIAL 5000 UNITS SUB-Q ×2 (09:50→20:38)
[2020-11-21] MEDS: DORZOLAMIDE HCL 2% OPHTH DROPS 1 DROP EACH EYE (09:50)
[2020-11-21 10:14] LABS: Glucose Point of Care 160 mg/dl (65-105)
[2020-11-21 12:00] VITALS: BP 145/44; PULSE 87; RESP 16; TEMP 35.7; O2SAT 94
[2020-11-21 12:24] LABS: Glucose Point of Care 172 mg/dl (65-105)
--- NOTE | 2020-11-21 14:51 | PCSTNOTE ---
Please refer to the Modified Barium Swallow Evaluation in the EMR.
--- NOTE | 2020-11-21 15:46 | PM.IMPN ---
Progress Note: A&P Assessment and Plan (1) Sepsis: Qualifiers: Sepsis acute organ dysfunction status: unspecified Sepsis type: sepsis due to unspecified organism Qualified Code(s): A41.9 - Sepsis, unspecified organism Code(s): A41.9 - Sepsis, unspecified organism Status: Acute Assessment and Plan: Present on admission with leukocytosis, bandemia and lactic acidosis. Suspect also her acute kidney injury and hyperglycemia related to the sepsis picture. Sepsis related to colitis. WBC slowly improving and bandemia resolved. Blood cultures collected and are NGTD. Continue Zosyn per antimicrobial stewardship. (2) Colitis: Code(s): K52.9 - Noninfective gastroenteritis and colitis, unspecified Status: Acute Assessment and Plan: Patient presents with evidence of sepsis. CT of the abdomen and pelvis without contrast showing colitis from the splenic flexure through the sigmoid colon. She is not having diarrhea. She was started on Cipro and Flagyl IV. Consider ischemia given her underlying history of CAD, PAD and CHF. WBC slowly trending down but no dramatic improvement. Obst series 11/20 showing featureless distal transverse colon and descending colon, consistent with colitis. Continue Zosyn per antimicrobial stewardship. Monitor white count. Consider adding oral Vanco if WBC does not improve. Stool cx still pending (3) Dysphagia: Code(s): R13.10 - Dysphagia, unspecified Status: Acute Assessment and Plan: Patient was noted to cough with thin liquids. Modified barium swallow 11/19 showing she had penetration with thin liquids that seemed to worsen with pudding. NPO was recommended. Speech Therapy working with patient. Oral medications held. ST saw patient today and recommended repeting the MBS which was done. MBS showing patient at risk with all consistencies. No overt aspirations but food sits at the top of the airway and at risk for aspiration. NPO status to be continued. 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 Spoke with yesterday and he stated patient had no hx of dysphagia. Dtr today states there was talk about placing feeding [facility] but they decided that patient was able to swallow safely. (4) Confusion: Code(s): R41.0 - Disorientation, unspecified Status: Acute Assessment and Plan: Patient's mental status waxes and wanes. Suspect chronic with symptoms better in the morning. No evidence of new findings by CT brain. Could also be related to the current infections as well. Flagyl can cause an encephalopathy so this was changed. Spoke with yesterday who stated patient not eating much at the SNF and she was spitting out food. (5) Anemia: Code(s): D64.9 - Anemia, unspecified Status: Acute Assessment and Plan: Patient had a hemoglobin of 9.9 on admission which is far lower than she has had the past. Her baseline hemoglobin mostly runs 11-13 range. Iron studies show iron<10 and TIBC 161 with Ferritin 135 (could be higher then expected due to acute phase reactant). B12 and Folate normal. Stool guaiac probably will be positive due to the colitis. Hgb dropped to the 8 range. IV iron started. Hgb better today at 10. Monitor H&H closely and transfuse as necessary. (6) Back pain: Code(s): M54.9 - Dorsalgia, unspecified Status: Acute Assessment and Plan: Patient was complaining of back pain. Lumbar x-ray shows moderate to severe lower lumbar disc disease. Thoracic x-ray also showing T9-T10 disc disease. CT of the abdomen and pelvis as mentioned above. UA was negative making infection less likely. Back pain probably chronic. Back pain could be related to her colitis as well. Will continue to follow. Treat symptomatically. (7) KALEB (acute kidney injury): Code(s): N17.9 - Acute kidney failure, unspecifi
[2020-11-21 16:00] VITALS: BP 133/76; PULSE 89; RESP 18; TEMP 35.8; O2SAT 92
[2020-11-21] MEDS: INSULIN GLARGINE (*BKC) 100 UNITS/ML 15 UNITS SUB-Q (18:07)
[2020-11-21] MEDS: LATANOPROST 0.005% OP SOLN 2.5 ML BTL 1 DROP EACH EYE (18:08)
[2020-11-21 18:20] LABS: Glucose Point of Care 175 mg/dl (65-105)
[2020-11-21 20:00] VITALS: BP 119/53; PULSE 73; RESP 18; TEMP 36.8; O2SAT 95
[2020-11-21] MEDS: DORZOLAMIDE HCL 2% OPHTH DROPS 1 DROP RIGHT EYE (20:38)
[2020-11-21] MEDS: CENTRAL LINE FLUSH 10 ML IV PUSH (22:21)
[2020-11-22] VITALS (9 sets, daily range): BP systolic 115–174; BP diastolic 40–67; PULSE 71–86; RESP 16–20; TEMP 35.5–36.2; O2SAT 94–99; BMI 32.1
[2020-11-22 00:59] LABS: Glucose Point of Care 161 mg/dl (65-105)
[2020-11-22 05:13] LABS: Alanine Aminotransferase 20 U/L (4-35); Albumin Level 2.2 g/dL (3.5-5.1); Alkaline Phosphatase 213 U/L (38-126); Anion Gap 5 mmol/L (8-16); Aspartate Amino Transferase 60 U/L (14-36); Bilirubin,Total 0.6 mg/dL (0.2-1.3); Blood Urea Nitrogen 50 mg/dL (7-17); Carbon Dioxide 24 mmol/L (22-30); Chloride 113 mmol/L (98-107); Estimated CRCL calculation 29 ml/min; Estimated Glomerular Filt Rate 39; Glucose 173 mg/dL (65-105); Magnesium 2.6 mg/dL (1.6-2.3); Phosphorus 2.6 mg/dL (2.5-4.5); Potassium 3.8 mmol/L (3.4-5.0); Sodium 142 mmol/L (137-145)
[2020-11-22 05:14] LABS: Hematocrit 29.8 % (37.0-47.0); Hemoglobin 9.3 g/dL (12.0-15.0); Mean Corpuscular HGB Conc 31.2 g/dl (32-36); Mean Corpuscular Hemoglobin 26.7 pg (26-34); Mean Corpuscular Volume 85.6 fl (80-100); Mean Platelet Volume 9.9 fl (7.4-10.4); Platelet Count Result 305 k/mm3 (150-375); Red Blood Count 3.48 M/mm3 (4.2-5.4); Red Cell Distribution Width 17.9 % (11.5-14.5); White Blood Count 25.5 K/mm3 (4.5-10.0)
[2020-11-22] MEDS: CENTRAL LINE FLUSH 10 ML IV PUSH ×3 (05:41→21:20)
[2020-11-22] MEDS: LEVOTHYROXINE SODIUM INJ 100 MCG/5 ML VIAL 50 MCG IV PUSH (05:41)
[2020-11-22 05:42] LABS: Band Neutrophils Percent 19 % (0-6); Lymphocytes Absolute Manual 0.76 K/mm3 (1.1-4.5); Monocytes Absolute Manual 2.29 K/mm3 (0.1-0.90); Monocytes Percent Manual 9 % (3-9); Neutrophils Absolute Manual 22.44 K/mm3 (1.7-7.2); Neutrophils Percent Manual 69 % (46-73); Platelet Estimate Adequate (Adequate); Total Cells Counted 100
[2020-11-22 05:52] LABS: Glucose Point of Care 166 mg/dl (65-105)
[2020-11-22] MEDS: MUPIROCIN 2% OINT 22 GM TUBE 1 APPLIC TOPICAL (09:13)
[2020-11-22] MEDS: IRON SUCROSE COMPLEX 100 MG in SODIUM CHLORIDE 0.9% IV 50 ML 220 MG IVPB (09:14)
[2020-11-22] MEDS: DORZOLAMIDE HCL 2% OPHTH DROPS 1 DROP RIGHT EYE ×2 (09:15→17:29)
[2020-11-22] MEDS: HEPARIN SODIUM 5,000 UNITS/ML VIAL 5000 UNITS SUB-Q ×2 (09:15→20:32)
[2020-11-22] MEDS: KCL 20 MEQ/D5/0.9% SOD CHL 1,000 ML 70 ML IV CONT (10:25)
--- NOTE | 2020-11-22 10:43 | PM.IMPN ---
Progress Note: A&P Assessment and Plan (1) Sepsis: Qualifiers: Sepsis acute organ dysfunction status: unspecified Sepsis type: sepsis due to unspecified organism Qualified Code(s): A41.9 - Sepsis, unspecified organism Code(s): A41.9 - Sepsis, unspecified organism Status: Acute Assessment and Plan: Present on admission with leukocytosis, bandemia and lactic acidosis. Suspect also her acute kidney injury and hyperglycemia related to the sepsis picture. Sepsis related to colitis. WBC was improving and bandemia resolved but WBC more elevated with bandemia of 19% today. Suspect CDiff but not having BMs. Blood cultures collected and are NGTD. Continue Zosyn per antimicrobial stewardship. Oral Vanco once NGT in place. (2) Colitis: Code(s): K52.9 - Noninfective gastroenteritis and colitis, unspecified Status: Acute Assessment and Plan: Patient presents with evidence of sepsis. CT of the abdomen and pelvis without contrast showing colitis from the splenic flexure through the sigmoid colon. She is not having diarrhea. She was started on Cipro and Flagyl IV. Consider ischemia given her underlying history of CAD, PAD and CHF. Obst series 11/20 showing featureless distal transverse colon and descending colon, consistent with colitis. WBC was slowly trending down but now more elevated. Continue Zosyn per antimicrobial stewardship. Added oral Vanco but not able to give due to no NGT; start today. Appreciate GI input. Stool studies unable to be collected. (3) Dysphagia: Code(s): R13.10 - Dysphagia, unspecified Status: Acute Assessment and Plan: Patient was noted to cough with thin liquids. Modified barium swallow 11/19 showing she had penetration with thin liquids that seemed to worsen with pudding. NPO was recommended. CXR on admission showing no evidence of acute infection. 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 Speech Therapy working with patient. Oral medications held. ST saw patient and recommended repeating the MBS that again showed the patient at risk with all consistencies. No overt aspirations but food sits at the top of the airway and at risk for aspiration. NPO status to be continued. Dtr stated there was talk about placing feeding tube when she was at the prior hospital but they ultimately decided that patient was able to swallow safely. NGT ordered but unable to be placed yesterday. Place today by [facility]oro. (4) Confusion: Code(s): R41.0 - Disorientation, unspecified Status: Acute Assessment and Plan: Patient's mental status waxes and wanes. 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 Could also be related to the current infections as well. Flagyl can cause an encephalopathy so this was changed. Spoke with who stated patient not eating much at the SNF and she was spitting out food; chronic vascular dementia? (5) Anemia: Code(s): D64.9 - Anemia, unspecified Status: Acute Assessment and Plan: Patient had a hemoglobin of 9.9 on admission which is far lower than she has had the past. Her baseline hemoglobin mostly runs 11-13 range. Iron studies show iron<10 and TIBC 161 with Ferritin 135 (could be higher then expected due to acute phase reactant). B12 and Folate normal. Stool guaiac probably will be positive due to the colitis. Hgb dropped to the 8 range but now back up to the 9-10 range. IV iron started but will hold since WBC climbing. Monitor H&H closely and transfuse as necessary. (6) Back pain: Code(s): M54.9 - Dorsalgia, unspecified Status: Acute Assessment and Plan: Patient was complaining of back pain. Lumbar x-ray shows moderate to severe lower lumbar disc disease. Thoracic x-ray also showing T9-T10 disc disease. CT of the abdomen and pelvis as mentioned above. [facility] was
[2020-11-22 11:25] LABS: Glucose Point of Care 163 mg/dl (65-105)
--- NOTE | 2020-11-22 12:25 | PCNSR ---
On 11/22/20, the student,Janell Lopez, provided care and completed [facility] documentation on this patient. I have reviewed the student's documentation and agree with the findings.
--- NOTE | 2020-11-22 13:12 | PC.NURSE ---
On 11/22/20, the student, [ Odalis Rodriguez], provided care and completed [facility] documentation on this patient. I have reviewed the student's documentation and agree with the findings.
[2020-11-22] MEDS: VANCOMYCIN ORAL 500 MG/10 ML SYRUP FEED TUBE ×3 (13:52→23:17)
--- NOTE | 2020-11-22 14:08 | WPDGIPROGNO ---
Progress Note: A&P Assessment and Plan (1) Colitis: Code(s): K52.9 - Noninfective gastroenteritis and colitis, unspecified Status: Acute Assessment and Plan: I agree with Dr. Babin, ischemia seems very likely. We have not been able to obtain a stool for C diff, and her has explain that she does not have spontaneous bowel movements (2) Sepsis: Qualifiers: Sepsis acute organ dysfunction status: unspecified Sepsis type: sepsis due to unspecified organism Qualified Code(s): A41.9 - Sepsis, unspecified organism Code(s): A41.9 - Sepsis, unspecified organism Status: Acute Assessment and Plan: it is not clear how much her colon or digestive tract is contributing to the sepsis. I am going to attempt a limited colonoscopy after a limited prep, dulcolax suppository and Fleet enema Subjective Date/time seen: 11/22/20 14:08 I met with the patient and her . I had NG-tube obviously could not be placed but she now has a Dobbhoff. I spoke with her about her swallowing issues. He confirmed, as the chart already reflex, that she was eating when she went into the hospital few weeks ago for her amputation and afterwards he states that she was eating breakfast and lunch fairly well but seemed to push back when dinner came. About the time she went to the rehabilitation unit she was not eating at all. That is when he questions whether she may have had a small stroke. We discussed the apparent colon problem, possible colitis and its possible contribution to her current issues. He told me that she has been dependent on laxatives for least 15 or 20 years. She does not have a bowel movement unless she uses something like an enema or Dulcolax tablet. I explained that we would like to do a colonoscopy but it would be impossible to give her a decent prep to the Dobbhoff. Her immobility also makes it difficult for her to pass liquid stool. I told that we may try to do a limited colonoscopy after giving her a Dulcolax suppository and Fleet enema. If nothing else that may allow us to visualize her left colon. Review of Systems Review of Systems: All systems reviewed & are unremarkable except as noted in HPI and below Exam Const: General: no acute distress and awake Orientation/consciousness: oriented to person Other: She is much more verbal today. She would for to sip a slightly in the conversation I had with her . 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 GI: Inspection: distended GI Palp: Yes Soft to palpation and Yes Tenderness to palpation present (GI) ( diffusely) Auscultation: normal bowel sounds Objective Data Vital Signs Vital Signs: Vital Signs - 24 hr 11/21/20 16:00 11/21/20 20:00 11/22/20 00:00 Temperature 35.8 C L 36.8 C 35.9 C L Pulse Rate 89 73 71 Respiratory Rate 18 18 20 Blood Pressure 133/76 119/53 L 115/54 L Pulse Oximetry 92 95 99 11/22/20 04:00 11/22/20 08:36 11/22/20 08:39 Temperature 36.2 C L 35.5 C L Pulse Rate 78 78 Respiratory Rate 16 16 Blood Pressure 129/54 L 150/45 H Pulse Oximetry 97 94 97 Intake/Output Intake/Output: Intake & Output 11/19/20 11/20/20 11/21/20 11/22/20 23:59 23:59 23:59 23:59 Intake Total 2525 2123 2405 1155 Output Total 0 550 350 Balance 2525 2123 1855 805 Meds/Results Medications: Active Medications Generic Name Dose Route Start Last Admin Trade Name Freq PRN Reason Stop Dose Admin Acetaminophen 500 mg 11/18/20 21:02 Acetaminophen 500 Mg Tablet PO Q6H PRN PAIN RATED 1-3 Amlodipine Besylate 10 mg 11/19/20 09:00 Amlodipine Besylate 5 Mg Tablet PO DAILY JEFFRY Aspirin 81 mg 11/19/20 09:00 11/19/20 09:39 Aspirin 81 Mg Enteric Tablet PO 81 mg DAILY JEFFRY Administration Atorvastatin Calcium 40 mg
--- NOTE | 2020-11-22 16:15 | PCSTNOTE ---
The patient treatment was not able to be completed on 11/22/20 due to placement of Dobhoff tube for nutrition and hydration. Will plan to continue treatment per plan of care yet due to patient's confusion and refusal to participate in direct swallowing exercises, she may be discharged from direct ST services tomorrow. This will be determined on Thursday11/23/20.
[2020-11-22] MEDS: BISACODYL 10 MG SUPPOSITORY RECTAL (16:25)
[2020-11-22 17:14] LABS: Glucose Point of Care 188 mg/dl (65-105)
[2020-11-22] MEDS: INSULIN GLARGINE (*BKC) 100 UNITS/ML 15 UNITS SUB-Q (17:26)
[2020-11-22] MEDS: LATANOPROST 0.005% OP SOLN 2.5 ML BTL 1 DROP EACH EYE (17:28)
[2020-11-22] MEDS: carvediloL 3.125 MG TABLET FEED TUBE (20:32)
[2020-11-22] MEDS: INSULIN ASPART (*BKC) 100 UNITS/ML SUB-Q (23:26)
[2020-11-22 23:31] LABS: Glucose Point of Care 263 mg/dl (65-105)
[2020-11-23] VITALS (15 sets, daily range): BP systolic 83–168; BP diastolic 38–87; PULSE 63–87; RESP 14–22; TEMP 35.7–36.4; O2SAT 94–100
[2020-11-23] MEDS: CENTRAL LINE FLUSH 10 ML IV PUSH ×3 (05:21→20:46)
[2020-11-23] MEDS: VANCOMYCIN ORAL 500 MG/10 ML SYRUP FEED TUBE ×3 (05:21→18:47)
[2020-11-23 05:33] LABS: Glucose Point of Care 255 mg/dl (65-105)
[2020-11-23] MEDS: INSULIN ASPART (*BKC) 100 UNITS/ML SUB-Q ×3 (05:33→18:47)
[2020-11-23] MEDS: LEVOTHYROXINE SODIUM INJ 100 MCG/5 ML VIAL 50 MCG IV PUSH (05:35)
[2020-11-23 05:41] LABS: Hematocrit 33.4 % (37.0-47.0); Hemoglobin 10.2 g/dL (12.0-15.0); Mean Corpuscular HGB Conc 30.5 g/dl (32-36); Mean Corpuscular Hemoglobin 27.2 pg (26-34); Mean Corpuscular Volume 89.1 fl (80-100); Mean Platelet Volume 9.9 fl (7.4-10.4); Platelet Count Result 322 k/mm3 (150-375); Red Blood Count 3.75 M/mm3 (4.2-5.4); Red Cell Distribution Width 18.3 % (11.5-14.5); White Blood Count 29.5 K/mm3 (4.5-10.0)
[2020-11-23 07:03] LABS: Band Neutrophils Percent 12 % (0-6); Lymphocytes Absolute Manual 0.59 K/mm3 (1.1-4.5); Lymphocytes Percent Manual 2 % (18-44); Monocytes Absolute Manual 1.77 K/mm3 (0.1-0.90); Monocytes Percent Manual 6 % (3-9); Neutrophils Absolute Manual 27.14 K/mm3 (1.7-7.2); Neutrophils Percent Manual 80 % (46-73); Platelet Estimate Adequate (Adequate); Total Cells Counted 100
[2020-11-23] MEDS: carvediloL 3.125 MG TABLET FEED TUBE ×2 (08:33→20:45)
[2020-11-23] MEDS: amLODIPine BESYLATE 5 MG TABLET FEED TUBE (08:34)
[2020-11-23] MEDS: DORZOLAMIDE HCL 2% OPHTH DROPS 1 DROP RIGHT EYE ×2 (08:34→18:46)
[2020-11-23] MEDS: HEPARIN SODIUM 5,000 UNITS/ML VIAL 5000 UNITS SUB-Q ×2 (08:34→20:45)
[2020-11-23] MEDS: MUPIROCIN 2% OINT 22 GM TUBE 1 APPLIC TOPICAL (08:35)
[2020-11-23] MEDS: LACTATED RINGERS 1,000 ML 150 ML IV CONT (10:00)
[2020-11-23 10:01] LABS: Anion Gap 9 mmol/L (8-16); Blood Urea Nitrogen 49 mg/dL (7-17); Calcium 8.3 mg/dL (8.4-10.2); Carbon Dioxide 22 mmol/L (22-30); Chloride 114 mmol/L (98-107); Estimated CRCL calculation 29 ml/min; Estimated Glomerular Filt Rate 39; Glucose 271 mg/dL (65-105); Potassium 3.9 mmol/L (3.4-5.0); Sodium 145 mmol/L (137-145)
--- NOTE | 2020-11-23 10:19 | WPDANESEPPF ---
Anes - Initial Pre Proc Eval Procedure: Operation Date: 11/23/20 10:00 Proposed Procedures p Colonoscopy - Nick Hill MD Date/Time: 11/23/20 10:19 Surgeon: Gogo Coulter MD Pre Op Diagnosis: colitis Patient Data Age: 80 Gender: F Height: 1.57 m Weight: 79.8 kg Last Vital Signs Temp 96.5 F L 11/23/20 09:08 Pulse 87 11/23/20 09:08 Resp 22 H 11/23/20 09:08 BP 142/87 H 11/23/20 09:08 Pulse Ox 98 11/23/20 09:08 Allergies Allergy/AdvReac Type Severity Reaction Status Date / Time prednisone AdvReac Mild Other Verified 11/23/20 09:02 simvastatin AdvReac Unknown Muscle Verified 11/23/20 09:02 Spasms Home Medications Medication Instructions Recorded Confirmed Type Lantus U-100 Insulin 10 unit SUBCUT QPM 11/22/19 11/18/20 History amlodipine 10 mg PO DAILY 11/22/19 11/18/20 History aspirin [Aspirin Low Dose] 81 mg PO DAILY 11/22/19 11/18/20 History atorvastatin 40 mg PO HS 11/22/19 11/18/20 History carvedilol 3.125 mg PO BID 11/22/19 11/18/20 History dorzolamide 1 drp OPHTHALMIC (EYE) BID 11/22/19 11/18/20 History duloxetine 60 mg PO DAILY 11/22/19 11/18/20 History furosemide 40 mg PO DAILY 11/22/19 11/18/20 History insulin lispro [Humalog U-100 1 sliding scale dose SUBCUT 11/22/19 11/18/20 History Insulin] USEASDIRECTD latanoprost 1 drp OPHTHALMIC (EYE) QPM 11/22/19 11/18/20 History levothyroxine 100 mcg PO DAILY 11/22/19 11/18/20 History losartan [Cozaar] 50 mg PO DAILY #30 tablet 11/26/19 11/18/20 Rx acetaminophen 500 mg PO Q6H PRN 11/18/20 11/18/20 History ergocalciferol (vitamin D2) 1,250 mcg PO WEEKLY 11/18/20 11/18/20 History hvygvwyu-xva-aurs-vitamin K [Adult 1 tablet PO DAILY 11/18/20 11/18/20 History Multivitamin with Iron] mupirocin 1 applic TOPICAL DAILY 11/18/20 11/18/20 History nitroglycerin [Nitrostat] 0.4 mg SUBLINGUAL ONCE PRN 11/18/20 11/18/20 History oxycodone-acetaminophen 1 tablet PO Q4H PRN 11/18/20 11/18/20 History Laboratory Tests 11/22/20 11/22/20 11/22/20 11:22 17:11 23:24 WBC RBC Hgb Hct MCV MCH MCHC RDW Plt Count MPV Immature Gran % (Auto) Neut % (Auto) Lymph % (Auto) Union % (Auto) Eos % (Auto) Baso % (Auto) Lymph # (Auto) Union # (Auto) Eos # (Auto) Baso # (Auto) Abs Immat Gran (auto) Absolute Neuts (auto) Absolute Nucleated RBC Total Counted Neutrophils % (Manual) Band Neutrophils % Lymphocytes % (Manual) Monocytes % (Manual) Nucleated RBC % Abs Neuts (Manual) Abs Lymphs (Manual) Abs Monocytes (Manual) Platelet Estimate Sodium Potassium Chloride Carbon Dioxide Anion Gap BUN Creatinine Estim Creat Clear Calc Estimated GFR Glucose POC Capillary Glucose 163 mg/dl H mg/dl 188 mg/dl H mg/dl 263 mg/dl H mg/dl (65-105) (65-105) (65-105) Calcium 11/23/20 11/23/20 11/23/20 05:19 05:19 05:30 WBC 29.5 K/mm3 H K/mm3 (4.5-10.0) RBC 3.75 M/mm3 L M/mm3 (4.2-5.4) Hgb 10.2 g/dL L g/dL (12.0-15.0) Hct 33.4 % L % (37.0-47.0) MCV 89.1 fl fl (80-100) MCH 27.2 pg pg (26-34) MCHC 30.5 g/dl L g/dl (32-36) RDW 18.3 % H % (11.5-14.5) Plt Count 322 k/mm3 k/mm3 (150-375) MPV 9.9 fl fl (7.4-10.4) Immature Gran % (Auto) Not Reportable Neut % (Auto) Not Reportable Lymph % (Auto) Not Reportable Union % (Auto) Not Reportable Eos % (Auto) Not Reportable
--- NOTE | 2020-11-23 11:03 | PCNFU ---
Nutrition Follow-Up Complete: Inadequate oral food intake related to colitis as evidence by NPO diet due to unsuccessful tube feed placement. Goal: Meet estimated nutritional needs. Patient is working towards meeting goal. Pt current nutrition is Glucerna 1.2 Tube Feedings. Last recorded weight is 79.8 kg. Bowel Motility: Last BM: 11/23 Labs Reviewed: Hgb 10.2, Hct 33.4, Na 145, K 3.9, GFR 39, BUN 49, Cr 1.3, Glu 271 Meds Noted: Tylenol, Norvasc, Aspirin, Lipitor, Coreg, Dextrose, Truspot, Cymbalta, Drisdol, Heparin, Novolog, Lantus, Xaltan, Synthroid, Multivitamin, Potassium, Zosyn, Vancomycin. Additional Notes: Patient is tolerating tube feeding well. Patient is at goal of 60 mL/hr. Patient is receiving 1,584 kcals, 79.2 gm protein, and 1,062.6 mL fluid. Will continue to monitor tolerance of tube feedings and rate of feeding. 100% of nutrient needs are being met. Follow up Thursday/Thursday.
[2020-11-23 11:08] LABS: Glucose Point of Care 235 mg/dl (65-105)
[2020-11-23] MEDS: FIDAXOMICIN 200 MG TABLET FEED TUBE ×2 (11:57→20:45)
[2020-11-23] MEDS: ASPIRIN 81 MG CHEWABLE TABLET FEED TUBE (11:58)
[2020-11-23 12:26] LABS: Glucose Point of Care 227 mg/dl (65-105)
--- NOTE | 2020-11-23 12:47 | PCSTNOTE ---
The patient treatment was not able to be completed on due to colonoscopy procedure. Will plan to continue treatment per plan of care although patient may be discharged from direct ST services due to disorientation/confusion and also has refused direct treatment in the past.
--- NOTE | 2020-11-23 12:51 | PM.IMPN ---
Progress Note: A&P Assessment and Plan (1) Sepsis: Qualifiers: Sepsis acute organ dysfunction status: unspecified Sepsis type: sepsis due to unspecified organism Qualified Code(s): A41.9 - Sepsis, unspecified organism Code(s): A41.9 - Sepsis, unspecified organism Status: Acute Assessment and Plan: Present on admission with leukocytosis, bandemia and lactic acidosis. Suspect also her acute kidney injury and hyperglycemia related to the sepsis picture. Sepsis related to colitis. WBC was improving but WBC more elevated with bandemia. WBC worse today but bandemia better. Suspect CDiff but not having BMs. Blood cultures collected and are NGTD. Continue Zosyn per antimicrobial stewardship. Oral Vanco was added. Also add Fidoxamicin. Monitor for clinical improvement. (2) Colitis: Code(s): K52.9 - Noninfective gastroenteritis and colitis, unspecified Status: Acute Assessment and Plan: Patient presents with evidence of sepsis. CT of the abdomen and pelvis without contrast showing colitis from the splenic flexure through the sigmoid colon. She is not having diarrhea. She was started on Cipro and Flagyl IV but changed to Zosyn. Consider ischemia given her underlying history of CAD, PAD and CHF. WBC trending up so oral Vanco added. Colonoscopy today showing colitis with rectal ulcers. Fidoxamicin added. Appreciate GI input. Stool studies unable to be collected still. (3) Dysphagia: Code(s): R13.10 - Dysphagia, unspecified Status: Acute Assessment and Plan: Patient was noted to cough with thin liquids. Modified barium swallow / showing she had penetration with thin liquids that seemed to worsen with pudding. NPO was recommended. CXR on admission showing no evidence of acute infection. 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 Speech Therapy working with patient. Oral medications held. ST saw patient and recommended repeating the MBS that again showed the patient at risk with all consistencies. No overt aspirations but food sits at the top of the airway and at risk for aspiration. NPO status to be continued. Dtr stated there was talk about placing feeding tube when she was at the prior hospital but they ultimately decided that patient was able to swallow safely. NGT placed and TF started. Tolerating TF now. May need PEG if unable to swallow safely. (4) Confusion: Code(s): R41.0 - Disorientation, unspecified Status: Acute Assessment and Plan: Patient's mental status waxes and wanes. 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 Could also be related to the current infections as well. Flagyl can cause an encephalopathy so this was changed. Spoke with who stated patient not eating much at the SNF and she was spitting out food; chronic vascular dementia? Here, appears to be intermitently confused. (5) Anemia: Code(s): D64.9 - Anemia, unspecified Status: Acute Assessment and Plan: Patient had a hemoglobin of 9.9 on admission which is far lower than she has had the past. Her baseline hemoglobin mostly runs 11-13 range. Iron studies show iron<10 and TIBC 161 with Ferritin 135 (could be higher then expected due to acute phase reactant). B12 and Folate normal. Stool guaiac probably will be positive due to the colitis. Hgb dropped to the 8 range but now back up to the 9-10 range. IV iron was started but then placed on hold since WBC climbing. Monitor H&H closely and transfuse as necessary. (6) Back pain: Code(s): M54.9 - Dorsalgia, unspecified Status: Acute Assessment and Plan: Patient was complaining of back pain. Lumbar x-ray shows moderate to severe lower lumbar disc disease. Thoracic x-ray also showing T9-T10 disc disease. CT of the abdomen and pelvis as mentioned above. UA was negativ
--- NOTE | 2020-11-23 13:51 | PCNSR ---
On 11/23/20, the student, [Janell Lopez ], provided care and completed [facility]. I have reviewed the student's documentation and agree with the findings.
--- NOTE | 2020-11-23 14:08 | PC.NURSE ---
On 11/23/20, the student, [Odalis Rodriguez], provided care and completed [facility] documentation on this patient. I have reviewed the student's documentation and agree with the findings.
[2020-11-23] MEDS: LATANOPROST 0.005% OP SOLN 2.5 ML BTL 1 DROP EACH EYE (18:45)
[2020-11-23] MEDS: INSULIN GLARGINE (*BKC) 100 UNITS/ML 19 UNITS SUB-Q (18:46)
[2020-11-23 19:03] LABS: Glucose Point of Care 214 mg/dl (65-105)
[2020-11-24] VITALS (7 sets, daily range): BP systolic 113–159; BP diastolic 37–51; PULSE 81–85; RESP 16–20; TEMP 36–37; O2SAT 94–97
[2020-11-24] MEDS: VANCOMYCIN ORAL 500 MG/10 ML SYRUP FEED TUBE ×4 (00:55→23:12)
[2020-11-24 01:10] LABS: Glucose Point of Care 194 mg/dl (65-105)
[2020-11-24] MEDS: INSULIN ASPART (*BKC) 100 UNITS/ML SUB-Q ×3 (06:01→23:17)
[2020-11-24] MEDS: CENTRAL LINE FLUSH 10 ML IV PUSH ×3 (06:01→21:26)
[2020-11-24 06:09] LABS: Glucose Point of Care 205 mg/dl (65-105)
[2020-11-24 06:18] LABS: Hematocrit 29.7 % (37.0-47.0); Hemoglobin 9.1 g/dL (12.0-15.0); Mean Corpuscular HGB Conc 30.6 g/dl (32-36); Mean Corpuscular Hemoglobin 27.3 pg (26-34); Mean Corpuscular Volume 89.2 fl (80-100); Mean Platelet Volume 10.6 fl (7.4-10.4); Platelet Count Result 255 k/mm3 (150-375); Red Blood Count 3.33 M/mm3 (4.2-5.4); Red Cell Distribution Width 18.5 % (11.5-14.5); White Blood Count 23.9 K/mm3 (4.5-10.0)
[2020-11-24 06:30] LABS: Anion Gap 9 mmol/L (8-16); Blood Urea Nitrogen 49 mg/dL (7-17); Calcium 6.9 mg/dL (8.4-10.2); Carbon Dioxide 18 mmol/L (22-30); Chloride 117 mmol/L (98-107); Estimated CRCL calculation 34 ml/min; Estimated Glomerular Filt Rate 48; Glucose 206 mg/dL (65-105); Magnesium 2.3 mg/dL (1.6-2.3); Phosphorus 4.1 mg/dL (2.5-4.5); Potassium 3.3 mmol/L (3.4-5.0); Sodium 144 mmol/L (137-145)
[2020-11-24 07:20] LABS: Band Neutrophils Percent 9 % (0-6); Lymphocytes Absolute Manual 1.67 K/mm3 (1.1-4.5); Monocytes Absolute Manual 0.23 K/mm3 (0.1-0.90); Monocytes Percent Manual 1 % (3-9); Neutrophils Percent Manual 83 % (46-73); Total Cells Counted 100
[2020-11-24 07:21] LABS: Platelet Estimate Adequate (Adequate)
--- NOTE | 2020-11-24 09:44 | WPDGIPROGNO ---
Progress Note: A&P Assessment and Plan (1) Dysphagia: Code(s): R13.10 - Dysphagia, unspecified Status: Acute Assessment and Plan: Speech therapy is here with the patient. She had removed her feeding tube. Therefore she needs to have a new Dobbhoff inserted. (2) Colitis: Code(s): K52.9 - Noninfective gastroenteritis and colitis, unspecified Status: Acute Assessment and Plan: She has had no stools today. I explained to the nursing staff that we need to attempt to obtain a stool specimen for C diff toxin. Biopsies obtained yesterday should help us determine whether this is more likely ischemic versus infectious colitis. Its distribution on CT scan suggest ischemic. (3) Sepsis: Qualifiers: Sepsis acute organ dysfunction status: unspecified Sepsis type: sepsis due to unspecified organism Qualified Code(s): A41.9 - Sepsis, unspecified organism Code(s): A41.9 - Sepsis, unspecified organism Status: Acute Assessment and Plan: Lymphocytosis persist. She is afebrile. At this time we are presuming that her colitis is responsible for the high white blood count. That could be the case if this is an infectious colitis that 1 would expect diarrhea. Subjective Date/time seen: 11/24/20 09:44 she unfortunately pulled out her Dobbhoff feeding tube. No stools at today. I discussed with nursing staff the fact that the laboratory will not accept stools from a GI Lab, consequently we still need to try to obtain a stool specimen for C diff toxin. Her colonoscopy revealed extensive ulceration. Ischemic colitis remains a possibility. . We may want to Perform CTA to evaluate mesenteric arteries, bill we should have some insight into the cause of her colitis when we get the results of her biopsies on Thursday Review of Systems Review of Systems: All systems reviewed & are unremarkable except as noted in HPI and below Exam Const: General: comfortable and no acute distress Orientation/consciousness: oriented to person GI: Inspection: normal to inspection, distended and no visible herniation Auscultation: normal bowel sounds Skin: General skin exam: dry skin and pallor Neuro: General: oriented to person and confusion Objective Data Vital Signs Vital Signs: Vital Signs - 24 hr 11/23/20 10:06 11/23/20 10:46 11/23/20 10:56 Temperature Pulse Rate 75 66 68 Respiratory Rate 19 14 16 Blood Pressure 116/53 L 83/47 L 141/56 H Pulse Oximetry 98 96 96 11/23/20 11:06 11/23/20 11:44 11/23/20 14:09 Temperature 36.3 C L 36.1 C L Pulse Rate 80 82 79 Respiratory Rate 22 H 16 16 Blood Pressure 146/63 H 160/53 H 144/38 H Pulse Oximetry 97 100 100 11/23/20 16:00 11/23/20 19:58 11/23/20 20:45 Temperature 36.3 C L 36.4 C L Pulse Rate 80 80 80 Respiratory Rate 16 14 Blood Pressure 157/50 H 144/49 H Pulse Oximetry 100 94 11/23/20 23:34 11/24/20 04:00 11/24/20 08:00 Temperature 36.3 C L 36.3 C L 36.0 C L Pulse Rate 72 84 84 Respiratory Rate 16 18 20 Blood Pressure 142/54 H 159/51 H 130/51 L Pulse Oximetry 95 94 97 Intake/Output Intake/Output: Intake & Output 11/21/20 11/22/20 11/23/20 11/24/20 23:59 23:59 23:59 23:59 Intake Total 2405 2085 710 690 Output Total 550 625 625 175 Balance 1855 1460 85 515 Meds/Results Medications: Active Medications Generic Name Dose Route Start Last Admin Trade Name Jessica PRN Reason Stop Dose Admin Acetaminophen 500 mg 11/18/20 21:02 Acetaminophen 500 Mg Tablet PO Q6H PRN PAIN RATED 1-3 Amlodipine Besylate 5 mg 11/23/20 09:00 11/23/20 08:34 Amlodipine Besylate 5 Mg Tablet FEED TUBE 5 mg QAM JEFFRY Administration Aspirin 81 mg 11/23/20 08:00 11/23/20 11:58 Aspirin 81 Mg Chewable Tablet FEED TUBE 81 mg DAILY@0800 [facility] Administration Atorvastatin Calcium 40 mg 11/18/20 21:00 11/18/20 22:28 Atorvastatin 40 Mg Tablet PO 40 mg HS JEFFRY Administration Carvedil
--- NOTE | 2020-11-24 10:40 | PM.IMPN ---
Progress Note: A&P Assessment and Plan (1) Sepsis: Qualifiers: Sepsis acute organ dysfunction status: unspecified Sepsis type: sepsis due to unspecified organism Qualified Code(s): A41.9 - Sepsis, unspecified organism Code(s): A41.9 - Sepsis, unspecified organism Status: Acute Assessment and Plan: Present on admission with leukocytosis, bandemia and lactic acidosis. Suspect also her acute kidney injury and hyperglycemia related to the sepsis picture. Sepsis related to colitis. WBC was improving but then worsened. Abx adjusted. Today, WBC better and bandemia down to 9%. Suspect CDiff but not having BMs; can not exclude ischemic colitis. Blood cultures collected and are NGTD. Continue Zosyn per antimicrobial stewardship. Continue oral Vanco and Fidaxomicin. Narrow abx once systems are better and WBC closer to normal. Check Lactic acid. Monitor for clinical improvement. (2) Colitis: Code(s): K52.9 - Noninfective gastroenteritis and colitis, unspecified Status: Acute Assessment and Plan: Patient presents with evidence of sepsis. CT of the abdomen and pelvis without contrast showing colitis from the splenic flexure through the sigmoid colon. She is not having diarrhea. She was started on Cipro and Flagyl IV but changed to Zosyn. Consider ischemia given her underlying history of CAD, PAD and CHF. WBC trended up so oral Vanco and then Fidaxomicin added. Colonoscopy 11/23 showing colitis with rectal ulcers. WBC better today. Appreciate GI input. Stool studies unable to be collected still. (3) Dysphagia: Code(s): R13.10 - Dysphagia, unspecified Status: Acute Assessment and Plan: Patient was noted to cough with thin liquids. Modified barium swallow 11/19 showing she had penetration with thin liquids that seemed to worsen with pudding. NPO was recommended. CXR on admission showing no evidence of acute infection. 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 Speech Therapy working with patient. Oral medications held. ST saw patient and recommended repeating the MBS that again showed the patient at risk with all consistencies. No overt aspirations but food sits at the top of the airway and at risk for aspiration. NPO status to be continued. Dtr stated there was talk about placing feeding tube when she was at the prior hospital but they ultimately decided that patient was able to swallow safely. NGT placed and TF started. Tolerating TF now. May need PEG if unable to swallow safely. Repeat modified barium swallow study on Thursday. (4) Confusion: Code(s): R41.0 - Disorientation, unspecified Status: Acute Assessment and Plan: Patient's mental status waxes and wanes. 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 Confusion could also be related to the current infections as well. Flagyl can cause an encephalopathy so this was changed. Spoke with who stated patient not eating much at the SNF and she was spitting out food; chronic vascular dementia? Here, she is intermittently confused. (5) Anemia: Code(s): D64.9 - Anemia, unspecified Status: Acute Assessment and Plan: Patient had a hemoglobin of 9.9 on admission which is far lower than she has had the past. Her baseline hemoglobin mostly runs 11-13 range. Iron studies show iron<10 and TIBC 161 with Ferritin 135 (could be higher then expected due to acute phase reactant). B12 and Folate normal. Stool guaiac probably will be positive due to the colitis. Hgb dropped to the 8 range but now back up to the 9-10 range. IV iron was started but then placed on hold since WBC climbing. Monitor H&H closely and transfuse as necessary. (6) Back pain: Code(s): M54.9 - Dorsalgia, unspecified Status: Acute Assessment and Plan: Patient was complaining of back pain
[2020-11-24] MEDS: FIDAXOMICIN 200 MG TABLET FEED TUBE ×2 (11:37→20:20)
[2020-11-24] MEDS: POTASSIUM CHLORIDE 20 MEQ PACKET (FOR LIQUID) FEED TUBE (11:37)
[2020-11-24] MEDS: ASPIRIN 81 MG CHEWABLE TABLET FEED TUBE (11:37)
[2020-11-24] MEDS: carvediloL 3.125 MG TABLET FEED TUBE ×2 (11:37→20:20)
[2020-11-24] MEDS: HEPARIN SODIUM 5,000 UNITS/ML VIAL 5000 UNITS SUB-Q ×2 (11:38→20:20)
[2020-11-24] MEDS: amLODIPine BESYLATE 5 MG TABLET FEED TUBE (11:38)
[2020-11-24] MEDS: DORZOLAMIDE HCL 2% OPHTH DROPS 1 DROP RIGHT EYE ×2 (11:38→19:26)
[2020-11-24] MEDS: MUPIROCIN 2% OINT 22 GM TUBE 1 APPLIC TOPICAL (11:40)
[2020-11-24 12:03] LABS: Glucose Point of Care 186 mg/dl (65-105)
[2020-11-24 12:36] LABS: Lactic Acid Reflex 1.6 mmol/L (0.7-2.1)
[2020-11-24] MEDS: FUROSEMIDE INJ 40 MG/4 ML VIAL 20 MG IV PUSH (13:11)
--- NOTE | 2020-11-24 16:13 | PC.NURSE ---
Dr. Babin, wanted to check when her yumiko were to be removed. Spoke with [facility] and they found a note regarding Daniella's next appointment to be in 2 weeks for follow-up with Dr. Mckeon which was dated 11/15/20 with no specific mention of yumiko.
[2020-11-24 17:03] LABS: Glucose Point of Care 240 mg/dl (65-105)
[2020-11-24] MEDS: INSULIN GLARGINE (*BKC) 100 UNITS/ML 22 UNITS SUB-Q (19:27)
[2020-11-24] MEDS: LATANOPROST 0.005% OP SOLN 2.5 ML BTL 1 DROP EACH EYE (19:29)
[2020-11-24 23:31] LABS: Glucose Point of Care 244 mg/dl (65-105)
[2020-11-25 05:07] LABS: Hematocrit 32.4 % (37.0-47.0); Hemoglobin 9.6 g/dL (12.0-15.0); Mean Corpuscular HGB Conc 29.6 g/dl (32-36); Mean Corpuscular Hemoglobin 26.8 pg (26-34); Mean Corpuscular Volume 90.5 fl (80-100); Mean Platelet Volume 10.3 fl (7.4-10.4); Platelet Count Result 280 k/mm3 (150-375); Red Blood Count 3.58 M/mm3 (4.2-5.4); Red Cell Distribution Width 18.9 % (11.5-14.5); White Blood Count 26.2 K/mm3 (4.5-10.0)
[2020-11-25 05:31] LABS: Alanine Aminotransferase 15 U/L (4-35); Albumin Level 2.1 g/dL (3.5-5.1); Alkaline Phosphatase 210 U/L (38-126); Anion Gap 10 mmol/L (8-16); Aspartate Amino Transferase 53 U/L (14-36); Bilirubin,Total 0.4 mg/dL (0.2-1.3); Blood Urea Nitrogen 69 mg/dL (7-17); Calcium 7.6 mg/dL (8.4-10.2); Carbon Dioxide 20 mmol/L (22-30); Chloride 115 mmol/L (98-107); Estimated CRCL calculation 20 ml/min; Estimated Glomerular Filt Rate 25; Glucose 288 mg/dL (65-105); Potassium 3.7 mmol/L (3.4-5.0); Sodium 145 mmol/L (137-145)
[2020-11-25] MEDS: VANCOMYCIN ORAL 500 MG/10 ML SYRUP FEED TUBE ×2 (05:33→12:09)
[2020-11-25] MEDS: CENTRAL LINE FLUSH 10 ML IV PUSH (05:33)
[2020-11-25] MEDS: INSULIN ASPART (*BKC) 100 UNITS/ML SUB-Q ×2 (05:33→12:12)
[2020-11-25] MEDS: LEVOTHYROXINE SODIUM INJ 100 MCG/5 ML VIAL 50 MCG IV PUSH (05:37)
[2020-11-25 05:38] LABS: Glucose Point of Care 296 mg/dl (65-105)
[2020-11-25 06:09] LABS: Band Neutrophils Percent 5 % (0-6); Lymphocytes Absolute Manual 2.35 K/mm3 (1.1-4.5); Monocytes Absolute Manual 0.52 K/mm3 (0.1-0.90); Monocytes Percent Manual 2 % (3-9); Neutrophils Absolute Manual 23.31 K/mm3 (1.7-7.2); Neutrophils Percent Manual 84 % (46-73); Total Cells Counted 100
[2020-11-25 06:11] LABS: Burr Cells 1+ (NORMAL); Platelet Estimate Adequate (Adequate); Poikilocytosis 1+ (NORMAL)
[2020-11-25 08:00] VITALS: BP 111/57; PULSE 69; RESP 18; TEMP 37.8; O2SAT 90
[2020-11-25 08:17] VITALS: PULSE 64
[2020-11-25] MEDS: ASPIRIN 81 MG CHEWABLE TABLET FEED TUBE (08:17)
[2020-11-25] MEDS: amLODIPine BESYLATE 5 MG TABLET FEED TUBE (08:17)
[2020-11-25] MEDS: carvediloL 3.125 MG TABLET FEED TUBE (08:17)
[2020-11-25] MEDS: DORZOLAMIDE HCL 2% OPHTH DROPS 1 DROP RIGHT EYE (08:20)
[2020-11-25] MEDS: FIDAXOMICIN 200 MG TABLET FEED TUBE (08:20)
[2020-11-25] MEDS: MUPIROCIN 2% OINT 22 GM TUBE 1 APPLIC TOPICAL (08:20)
[2020-11-25] MEDS: HEPARIN SODIUM 5,000 UNITS/ML VIAL 5000 UNITS SUB-Q (08:20)
--- NOTE | 2020-11-25 08:58 | PM.IMPN ---
Progress Note: A&P Assessment and Plan (1) Sepsis: Qualifiers: Sepsis acute organ dysfunction status: unspecified Sepsis type: sepsis due to unspecified organism Qualified Code(s): A41.9 - Sepsis, unspecified organism Code(s): A41.9 - Sepsis, unspecified organism Status: Acute Assessment and Plan: Present on admission with leukocytosis, bandemia and lactic acidosis. Suspect also her acute kidney injury and hyperglycemia related to the sepsis picture. Sepsis related to colitis. WBC was improving but then worsened. Abx adjusted. WBC stayed >20 Suspect CDiff but not having BMs until yesterday ; can not exclude ischemic colitis. Blood cultures collected and are no growth. Continue Zosyn per antimicrobial stewardship. Continue oral Vanco and Fidaxomicin. Lactic acid WNL yesterday at 1.6. Consider reculture samples. May need further hemodyanmic support - as peripheral perfusion be now be affected - possible septic emboli? Family (2 daughters and patient's in agreement) changed code status from Full Code to DNR this morning, prior to patient passing. (2) Colitis: Code(s): K52.9 - Noninfective gastroenteritis and colitis, unspecified Status: Acute Assessment and Plan: Patient presents with evidence of sepsis. CT of the abdomen and pelvis without contrast showing colitis from the splenic flexure through the sigmoid colon. she was not initially having diarrhea, then diarrhea started yesterday and today. She was started on Cipro and Flagyl IV but changed to IV Zosyn and oral Vanc. Consider ischemia given her underlying history of CAD, PAD and CHF. WBC trended up so oral Vanco and then Fidaxomicin added. Colonoscopy 11/23 showing colitis with rectal ulcers. Awaiting colon biopsy results from patho. WBC >20 still today. , 26.2 today. Appreciate GI input. Stool studies cultures collected - results pending. (3) Dysphagia: Code(s): R13.10 - Dysphagia, unspecified Status: Acute Assessment and Plan: Patient was noted to cough with thin liquids. Modified barium swallow 11/19 showing she had penetration with thin liquids that seemed to worsen with pudding. NPO was recommended. CXR on admission showing no evidence of acute infection. 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 Speech Therapy working with patient. Oral medications held. ST saw patient and recommended repeating the MBS that again showed the patient at risk with all consistencies. No overt aspirations but food sits at the top of the airway and at risk for aspiration. NPO status to be continued. Dtr stated there was talk about placing feeding tube when she was at the prior hospital but they ultimately decided that patient was able to swallow safely. NGT placed and TF started. Tolerating TF now. May need PEG if unable to swallow safely. Repeat modified barium swallow study on Thursday. (4) Confusion: Code(s): R41.0 - Disorientation, unspecified Status: Acute Assessment and Plan: Patient's mental status waxes and wanes. 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 Confusion could also be related to the current infections/Sepsis as well. Flagyl can cause an encephalopathy so this was changed. Spoke with who stated patient not eating much at the SNF and she was spitting out food; chronic vascular dementia? Here, she is intermittently confused. Unresponsive today . (5) Anemia: Code(s): D64.9 - Anemia, unspecified Status: Acute Assessment and Plan: Patient had a hemoglobin of 9.9 on admission which is far lower than she has had the past. hgb 9.6 today Her baseline hemoglobin mostly runs 11-13 range. Iron studies show iron<10 and TIBC 161 with Ferritin 135 (could be higher then expected due to acute phase karely
[2020-11-25 10:57] LABS: Glucose Point of Care 212 mg/dl (65-105)
--- NOTE | 2020-11-25 18:48 | PM.DDS ---
Discharge Sum: Prov Provider Primary care physician: Jerry Pruett, Admitting provider: Gogo Coulter MD Consults: 11/20/20 09:07 Consult to Physician Routine Comment: Consulting Provider: Nick Hill director call center sales/MD group to consult: GI oncall Reason for consultation: colitis Has provider been notified: Yes 11/21/20 Wound/ET Consult Routine Reason for Consult:: already spoke with them earlier today 11/21/20 16:25 Consult to Dietitian Routine Reason for Consult:: tube feedings Discharge Sum: Diag Contributing Factors (1) Sepsis: (2) Colitis: (3) Dysphagia: (4) Confusion: (5) Anemia: (6) Back pain: (7) KALEB (acute kidney injury): (8) Elevated troponin: (9) Hypertension: (10) Peripheral vascular disease due to secondary diabetes mellitus: (11) Coronary artery disease: (12) Hyponatremia: (13) Hypothyroidism: (14) Congestive heart failure: (15) DM2 (diabetes mellitus, type 2): (16) DVT prophylaxis: Discharge Sum: Summary Date and Time Date of admission: 11/18/20 17:50 Additional Data Attending physician: Kiki Mesa NP
== END 2020-11-25 14:15 | disposition expired | DRG 872 ==
LOC: ANHED 18:28 → ANH3MED 11-19 08:06
PROVIDERS: Internal Medicine; Internal Medicine Gastroenterology; Admitting Provider Internal Medicine; Emergency Provider Emergency Medicine; PCP Internal Medicine; Visit Provider Nurse Practitioner
PROC: 0DJD8ZZ Inspection of Lower Intestinal Tract, Via Natural or Artificial Opening Endoscopic (ICD-10-PCS; CPT 45378; principal; 2020-11-23 10:00)
DX: A41.9 Sepsis, unspecified organism (principal); I50.32 Chronic diastolic (congestive) heart failure; N17.9 Acute kidney failure, unspecified; E87.1 Hypo-osmolality and hyponatremia; K62.6 Ulcer of anus and rectum; K52.9 Noninfective gastroenteritis and colitis, unspecified; R13.10 Dysphagia, unspecified; R41.0 Disorientation, unspecified; D64.9 Anemia, unspecified; M54.9 Dorsalgia, unspecified; M51.35 Other intervertebral disc degeneration, thoracolumbar region; R77.8 Other specified abnormalities of plasma proteins; I11.0 Hypertensive heart disease with heart failure; I25.10 Atherosclerotic heart disease of native coronary artery without angina pectoris; I44.7 Left bundle-branch block, unspecified; E11.49 Type 2 diabetes mellitus with other diabetic neurological complication; E11.51 Type 2 diabetes mellitus with diabetic peripheral angiopathy without gangrene; E03.9 Hypothyroidism, unspecified; H40.9 Unspecified glaucoma; E78.5 Hyperlipidemia, unspecified; R74.8 Abnormal levels of other serum enzymes; N20.0 Calculus of kidney; Z66 Do not resuscitate; I25.2 Old myocardial infarction; Z79.4 Long term (current) use of insulin; Z79.82 Long term (current) use of aspirin; Z79.899 Other long term (current) drug therapy; Z86.73 Personal history of transient ischemic attack (TIA), and cerebral infarction without residual deficits; Z89.512 Acquired absence of left leg below knee; Z95.5 Presence of coronary angioplasty implant and graft; Z98.42 Cataract extraction status, left eye; Z98.41 Cataract extraction status, right eye
CPT/HCPCS: 36415; 36600; 43752; 51701; 70450; 71046; 72070; 72100; 74019; 74176; 80048; 80053; 80069; 81001; 82607; 82728; 82746; 82805; 82948; 83036; 83540; 83550; 83605; 83690; 83735; 84100; 84439; 84443; 84480; 84484; 85025; 85610; 85730; 86140; 87040; 87324; 88305; 92526; 92610; 92611; 93005; 94762; 96361; 96374; 97110; 97161; 97166; 97530; 99285; A9270; J0131; J0744; J1642; J1644; J1756; J1815; J1940; J2270; J2543; J2704; J3480; J7030; J7120